=== PATIENT | female | born 1935 | race Caucasian/White ===

== ENCOUNTER 2016-05-15 23:12 | Inpatient (IN) ==
[2016-05-15] MEDS ORDERED: CLINDAMYCIN INJ 600 MG in PREMIX 1 EACH IV STA (23:45)
[2016-05-15] MEDS ORDERED: SODIUM CHLORIDE 0.9% 500 ML IV STA (23:45)
[2016-05-15] MEDS ORDERED: CLINDAMYCIN INJ 0 ML IV ONE (23:57)
--- NOTE | 2016-05-16 00:02 | Emergency Department Note ---
ILibby Emily, am scribing for, and in the presence of, Lucio Sharma MD 23: 51. Edith Snell Charles R, MD, personally performed the services described in this documentation, ascribed by Rose Souza in my presence, and it is both accurate and complete . Arrival - Arrival Chief Complaint: Extremity Problem Stated Complaint: pain in left leg ED Nursing Triage Note: pt states she has cellulitis in left leg and its hurting and burning and itching. pt was prescribed antibiotics that didnt help and md told pt she may need iv antibiotics Mode of Arrival: Wheelchair Limitations: No Limitations Source: Patient, Family Time Seen by Provider: 05/15/16 23:30 - History of Present Illness HPI Narrative: Pt is a 80 y/o female who came to ED with c/o chronic cellulitis in left leg that started before , May 09, 2016. However, pt was given abx of doxycycline on , but no relief. Pt notes her leg is swelling, itching and severely burning. Pt has called Dr. Powell due to chemo treatment tends to make her legs flare up with cellulitis. Pt denies hx of blood clots. Family states she has been hospitalized twice since 2015, for this sx. Pt reports taking Lasix earlier today and 2 ibuprofen with pain worsened. Pt is currently in Stage IV Breast CA and had right mastectomy. Onset (ago): hour(s) Consistency: constant Severity: moderate, severe Severity scale (1-10): 7 Quality: aching Date of Last Menstrual Period: hysty Allergies/Adverse Reactions: Allergies Allergy/AdvReac Type Severity Reaction Status Date / Time ampicillin Allergy RASH Verified 12/12/15 10:48 cephalexin [From Keflex] Allergy RASH Verified 12/12/15 10:48 Cephalosporins Allergy RASH Verified 12/12/15 10:48 Penicillins Allergy RASH Verified 12/12/15 10:49 Home Medications: Home Medications Medication Instructions Recorded Confirmed Type Anastrozole 1 mg PO DAILY@1700 12/12/15 01/08/16 History Mupirocin [Mupirocin 2% Oint] 1 applic TOP DAILY 01/08/16 01/08/16 History levoFLOXacin [Levofloxacin Tab] 250 mg PO TID 01/08/16 01/08/16 History Review of System - Review of System 12 point system: reviewed and no additional remarkable complaints except as stated - Review of System Constitutional: Absent: chills, fever Respiratory: Absent: respiratory distress Cardiovascular: Absent: chest pain Gastrointestinal: Absent: abdominal pain, nausea, vomiting Musculoskeletal: Present: leg pain (left leg swollen, itchy, burning). Absent: arm pain, back pain, neck pain Skin: Absent: rash Neurological: Absent: headache Psychiatric: Absent: anxiety Medical,Surgical,& Family Hx - Medical History Neurology: History of: Seizures Respiratory: No history of: Obstructive Sleep Apnea, Lung Cancer, Respiratory Problems Gastrointestinal: History of: GI Problems Musculoskeletal: History of: Back/Neck Problems Reproductive: History of: Breast Cancer (right masectomy) Other: History of: Cancer (stage 4 breast cancer) - Surgical History Thoracic Surgeries: Patient denies;: Lobectomy Reproductive Surgeries: Surgical HX of;: Hysterectomy - Family History Family History: Reports;: Family Heart Disease, Family Hypertension Denies;: Family Anesthesia Reaction, Family Cancer, Family Diabetes - Social History Smoking Status: Never smoker Frequency of Alcohol Use: None Type of Drug Use: None Marital Status: Single Exam Vital Signs: Vital Signs Temperature 98.7 F 05/15/16 23:16 Pulse Rate 97 H 05/15/16 23:16 Respiratory Rate 20 05/15/16 23:16 Blood Pressure 143/79 05/15/16 23:16 O2 Sat by Pulse Oximetry 96 05/15/16 23:16 - General General appearance: alert, in no apparent distress - Head Head exam: Present: atraumatic, normocephalic - Eye Eye exam: Present: PERRL, EOMI - ENT ENT exam: Present: mucous membranes moist. Absent: mucous membranes dry - Neck Neck exam: Present: full ROM. Absent: tenderness - Chest Chest inspection: Present: symmetric chest wall rise. Absent: tenderness - Respiratory Respiratory exam: Present: rales (mild). Absent: respiratory distress - Cardiovascular Cardiovascular exam: Present: regular rate, normal rhythm, normal heart sounds - Abdominal Exam Abdominal exam: Present: soft. Absent: distention, tenderness - Extremities Exam Extremities exam: Present: full ROM, tenderness (left leg from knee down is beaming red and severe warm to touch and swollen; negative rene's sign) - Neurological Exam Neurological exam: Present: alert, oriented X3, CN II-XII intact. Absent: motor sensory deficit - Psychiatric Psychiatric exam: Present: normal affect, normal mood - Skin Skin exam: Present: warm, dry Course - Reevaluation(s) Reevaluation #1: There is a delaying care because the patient does not want any of the nurses in this emergency room or in the hospital except specifically the fourth floor nurses to access her port. We explained to her that our nurses are capable and she says no currently right now there is several codes going on the hospital and the nurses are busy and they cannot come down to access her port as soon as the nurses available to come down to do it they will but this is a reason for delaying care this patient she understands this and she accepts this risk we cannot get blood drawn get medications until we accessed her port and she will not allow any nurse to touch and listed the nurses from the 4th floor Time: 01:27 Reevaluation #2: Patient was pleased when she found out that was going to the floor with a access her port and get her blood work and start antibiotics Time: 01:50 - Consultations Consultation #1: Spoke to Dr. Shepard he said go ahead admit her for observation IV antibiotics they can access her Mediport upstairs in the floor since we are delaying care and time down here in the emergency room since all the nurses are tied up and busy cannot come down here they can access it up there and get the labs have Dr. Powell here in the morning Time: 01:45 Disposition Clinical Impression: Cellulitis, Breast cancer Case discussed with: patient, patient's family Disposition: Still a Patient Condition: Stable Time of Disposition: 01:48
[2016-05-16] MEDS ORDERED: chlorproMAZINE INJ 25 MG in SODIUM CHLORIDE 0.9% 100 ML IV PRN (02:43)
[2016-05-16] MEDS ORDERED: LACTULOSE 20 GM/30 ML UDCUP PO PRN (02:43)
[2016-05-16] MEDS ORDERED: chlorproMAZINE 25 MG TABLET PO PRN (02:43)
[2016-05-16] MEDS ORDERED: MAGNESIUM HYDROXIDE SUSP 30 ML UDCUP PO PRN (02:43)
[2016-05-16] MEDS ORDERED: ALPRAZolam 0.25 MG TABLET PO PRN (02:43)
[2016-05-16] MEDS ORDERED: MYLANTA/LIDO VISC 2:1 300 ML BOTTLE SWISH/SWAL PRN (02:43)
[2016-05-16] MEDS ORDERED: BENZTROPINE 2 MG/2 ML AMP IV PRN (02:43)
[2016-05-16] MEDS ORDERED: LOPERAMIDE 2 MG CAPSULE PO PRN ×2 (02:43)
[2016-05-16] MEDS ORDERED: traMADol 50 MG TABLET PO PRN (02:43)
[2016-05-16] MEDS ORDERED: PROMETHAZINE INJ 25 MG in SODIUM CHLORIDE 0.9% 50 ML IV PRN (02:43)
[2016-05-16] MEDS ORDERED: TEMAZEPAM 7.5 MG CAPSULE PO PRN (02:43)
[2016-05-16] MEDS ORDERED: ACETAMINOPHEN 325 MG TABLET PO PRN (02:43)
[2016-05-16] MEDS ORDERED: chlorproMAZINE INJ 50 MG in SODIUM CHLORIDE 0.9% 100 ML IV PRN (02:43)
[2016-05-16] MEDS ORDERED: ONDANSETRON 4 MG/2 ML VIAL IV PRN (02:43)
[2016-05-16] MEDS ORDERED: guaiFENesin 200 MG/10 ML UDCUP PO PRN (02:43)
[2016-05-16] MEDS ORDERED: diphenhydrAMINE CAP 25 MG CAPSULE PO PRN (02:43)
[2016-05-16] MEDS ORDERED: ALUMINUM/MAGNES/SIMETH MAX STR 30 ML UDCUP PO PRN (02:43)
[2016-05-16] MEDS ORDERED: MYLANTA/LIDO VISC 2:1 300 ML BOTTLE SWISH/SPIT PRN (02:43)
[2016-05-16] MEDS: SODIUM CHLORIDE 0.9% 1,000 ML IV SCH (03:42)
[2016-05-16 05:57] LABS: Albumin 3.1 G/DL (3.4-5.0); Bilirubin,Total 0.5 MG/DL (0.2-1.0); Calcium 8.4 MG/DL (8.5-10.1); Magnesium 1.7 MG/DL (1.8-2.4); Osmolality,Calculated 288.8 MOS/KG (273-304); Potassium 3.7 MMOL/L (3.5-5.1); Total Protein 6.2 G/DL (6.4-8.3); Uric Acid 6.2 MG/DL (2.6-6.0)
[2016-05-16 06:05] LABS: Basophils % 0.4 % (0.0-0.8); Eosinophils # 0.4 10*3/uL (0.0-0.87); Eosinophils % 4.5 % (0.00-10.9); Hematocrit 33.4 VOL% (35.7-47.0); Hemoglobin 10.9 GM/DL (12.0-16.0); Immature Granulocytes % 0.4 %; Immature Granulocytes Absolute 0.04 #; Lymphocytes # 2.4 10*3/uL (1.4-4.0); Lymphocytes % 27.3 % (21.3-54.2); Mean Corpuscular HGB Conc 32.6 GM/DL (32-36); Mean Corpuscular Hemoglobin 31 PG (27-34); Mean Corpuscular Volume 94.4 FL (87-102); Monocytes # 0.9 10*3/uL (0.11-0.8); Neutrophils # 5.1 10*3/uL (1.4-7.4); Neutrophils % 57.4 % (38.7-73.9); Platelet Count 223 T/CUMM (130-400); Red Blood Count 3.54 MC/CUMM (3.8-5.5); Red Cell Distribution Width 13.2 % (9.3-17.3); White Blood Count 8.9 T/CUMM (4-12)
[2016-05-16 06:13] LABS: PT Patient Result 10.5 SECS
[2016-05-16] MEDS: CLINDAMYCIN INJ 600 MG in PREMIX 1 EACH IV SCH ×3 (06:28→18:37)
[2016-05-16] MEDS ORDERED: FUROSEMIDE 20 MG TABLET PO PRN (07:26)
--- NOTE | 2016-05-16 07:32 | Oncology Progress Note ---
Oncology Subjective PN Interval history: Patient admitted overnight with fever and lower extremity cellulitis left greater than right. 1 of several episodes. The patient stated she attempted to treat with home supply of doxycycline but to no avail. She is followed by me for metastatic breast cancer with bone metastasis in the setting of a remote history of breast cancer and bilateral mastectomy. She has received cytotoxic chemotherapy as well as immunotherapy in the past and is currently on aromatase inhibitor and Xgeva. 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
--- NOTE | 2016-05-16 07:35 | Oncology History&Physical ---
Assessment and Plan (1) Cellulitis Status: Acute Assessment and plan: The patient has been placed on IV clindamycin and I will add IV vancomycin. See chart for further orders Current Visit: Yes History of Present Illness Chief complaint: Fever and cellulitis History of present illness: Ms. Dequan Hampton is a 80 year old female Patient admitted overnight with fever and lower extremity cellulitis left greater than right. 1 of several episodes. The patient stated she attempted to treat with home supply of doxycycline but to no avail. She is followed by me for metastatic breast cancer with bone metastasis in the setting of a remote history of breast cancer and bilateral mastectomy. She has received cytotoxic chemotherapy as well as immunotherapy in the past and is currently on aromatase inhibitor and Xgeva. 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 and was treated as lung cancer originally until a repeat biopsy tested positive for estrogen receptor Home Medications Medication Instructions Recorded Confirmed Type Anastrozole 1 mg PO ONCE 12/12/15 05/16/16 History Mupirocin [Mupirocin 2% Oint] 1 applic TOP DAILY 01/08/16 05/16/16 History Doxycycline Hyclate Cap 100 mg PO BID 05/16/16 05/16/16 History [Vibramycin Cap] Furosemide 20 mg PO BID PRN 05/16/16 05/16/16 History Allergies Allergy/AdvReac Type Severity Reaction Status Date / Time ampicillin Allergy RASH Verified 12/12/15 10:48 cephalexin [From Keflex] Allergy RASH Verified 12/12/15 10:48 Cephalosporins Allergy RASH Verified 12/12/15 10:48 Penicillins Allergy RASH Verified 12/12/15 10:49 Medical,Surgical,& Family Hx - Medical History Neurology: History of: Seizures Respiratory: No history of: Obstructive Sleep Apnea, Lung Cancer, Respiratory Problems Gastrointestinal: No history of: GI Problems Musculoskeletal: History of: Back/Neck Problems (back aches) Hematology: History of: Anemia (has received blood once due to low counts) Reproductive: History of: Breast Cancer (right masectomy) Other: History of: Cancer (stage 4 breast cancer), Skin Problems (cellulitis) - Surgical History Thoracic Surgeries: Patient denies;: Lobectomy HEENT Surgeries: Surgical HX of: Tonsilectomy & Adenoidectomy Abdominal Surgeries: Surgical HX of: Appendectomy Reproductive Surgeries: Surgical HX of;: Breast Surgery, Hysterectomy - Family History Family History: Reports;: Family Heart Disease, Family Hypertension Denies;: Family Anesthesia Reaction, Family Cancer, Family Diabetes - Social History Smoking Status: Never smoker Frequency of Alcohol Use: None Type of Drug Use: None - Constitutional Constitutional: Present: fatigue, fever(s). Absent: chills, increased appetite , weight gain, weight loss - EENT Ears: Absent: tinnitus Nose, mouth and throat: Absent: vertigo - Cardiovascular Cardiovascular ROS IM: Absent: chest pain, palpitations - Respiratory Respiratory: Present: dyspnea. Absent: cough, hemoptysis, wheezing - Gastrointestinal Gastrointestinal: Absent: abdominal pain, change in bowel habits, heartburn Exam - Constitutional Vitals: Period Temp Pulse Resp BP Sys/Garcia Pulse Ox Last 24 Hr 98.5 F 76-89 20-20 100-133/63-78 95-95 General appearance: mild distress, over weight - Head Head Exam: Present: normal inspection, normocephalic, atraumatic - Eye Eye Exam: Present: EOMI. Absent: conjunctival injection, periorbital swelling, scleral icterus Pupils: Present: PERRL, normal accommodation - ENT ENT exam: Present: normal external ear exam - Neck Neck exam: Present: normal inspection. Absent: lymphadenopathy - Respiratory Respiratory exam: Present: CTAB. Absent: accessory muscle use - Cardiovascular Cardiovascular exam: Present: RRR - GI/Abdominal GI/Abdominal exam: Absent: distended, firm, guarding, mass, tenderness - Extremities Exam Extremities exam: Present: normal capillary refill - Neurological Exam Neurological exam: Present: alert, oriented X3 - Skin Skin exam: Present: warm (Bilateral lower extremity cellulitis left greater than right), erythema Results - Labs CBC & BMP: 05/16/16 05:30 05/16/16 03:00 Quality Measures - VTE Contraindication to Mechanical VTE Prophylaxis: Local Inflammation
--- NOTE | 2016-05-16 08:36 | XRay Report ---
XR chest 2V Date: 05/16/2016 4:00 AM History: Shortness of breath Comparison: 05/17/2015 Technique: PA and lateral chest Findings: The heart is minimally enlarged with uncoiling of the aorta. Stable venous right venous access catheter. The lungs remain hyperexpanded with chronic scarring. Stable mediastinum with degenerative changes. Residual areas of sclerosis and inhomogeneous bony trabecular pattern especially in the left humeral head. Prior right mastectomy. Impression: The lungs remain minimally hyperexpanded with chronic interstitial scarring. Prior right mastectomy with residual osseous findings consistent with metastatic disease. PROCEDURE INTERPRETED AT [facility] DEPARTMENT OF RADIOLOGY Final Report Signed by: Dr. Dalia Hirsch
[2016-05-16] MEDS: PANTOPRAZOLE 40 MG TABLET PO SCH (09:27)
[2016-05-16] MEDS: VANCOMYCIN INJ 1,250 MG in SODIUM CHLORIDE 0.9% 250 ML IV SCH ×2 (09:34→20:23)
[2016-05-16 19:46] LABS: Apearance,Urine CLEAR (Clear); Bilirubin,Urine Negative (Negative); Blood, Urine Negative (Negative); Glucose,Urine (UA) Negative (Negative); Ketones,Urine 5 mg/dL (Negative); Nitrite,Urine Negative (Negative); Protein,Urine Negative; Squamous Epithelial Cell,Urine Occasional /HPF (0-10); Urine Color Straw (Yellow); Urine Specific Gravity 1.008 (1.001-1.035); Urine Urobilinogen < 2.0 EU/DL (0.2-1.0); WBC,Urine 1 /HPF (0-6)
[2016-05-17] MEDS: CLINDAMYCIN INJ 600 MG in PREMIX 1 EACH IV SCH ×5 (00:25→23:54)
[2016-05-17] MEDS: SODIUM CHLORIDE 0.9% 1,000 ML IV SCH (02:45)
[2016-05-17] MEDS: VANCOMYCIN INJ 1,250 MG in SODIUM CHLORIDE 0.9% 250 ML IV SCH ×2 (09:29→20:32)
[2016-05-17] MEDS: PANTOPRAZOLE 40 MG TABLET PO SCH (09:31)
--- NOTE | 2016-05-17 10:30 | Oncology Progress Note ---
Assessment and Plan (1) Cellulitis Status: Acute Assessment and plan: The patient has been placed on IV clindamycin and I will add IV vancomycin. See chart for further orders Current Visit: Yes Oncology Subjective PN Interval history: Hospital day 3. Patient stable overnight. She is not requiring anything for leg pain. By demarcation the cellulitis has not progressed. A vancomycin trough is ordered for later this evening. Her current dose is 1250 mg every 12 hours along with IV clindamycin. We checked for drug interactions at the bedside with anastrozole and clindamycin and none were found. She has some other complaints of skin irritation and neck stiffness. Going to add ibuprofen as needed aches and pains. Her last admission required approximately 5-6 days of antibiotics before significant improvement was seen. Blood culture results are still pending as of this dictation . labs are ordered for the a.m. Exam - Constitutional Vitals: Period Temp Pulse Resp BP Sys/Garcia Pulse Ox Last 24 Hr 96.1 F-98.5 F 89-102 18-23 105-150/53-74 93-97 Results - Labs CBC & BMP: 05/16/16 05:30 05/16/16 03:00 Quality Measures - VTE Contraindication to Mechanical VTE Prophylaxis: Local Inflammation
[2016-05-17] MEDS ORDERED: IBUPROFEN 400 MG TABLET PO PRN (10:31)
[2016-05-17] MEDS: MUPIROCIN 2% OINT 22 GM TUBE TOP SCH (20:32)
[2016-05-18] MEDS: CLINDAMYCIN INJ 600 MG in PREMIX 1 EACH IV SCH ×4 (06:11→23:56)
[2016-05-18 06:43] LABS: Albumin 2.8 G/DL (3.4-5.0); Calcium 8.2 MG/DL (8.5-10.1); Osmolality,Calculated 294.4 MOS/KG (273-304); Potassium 4.1 MMOL/L (3.5-5.1); Total Protein 5.6 G/DL (6.4-8.3)
[2016-05-18 07:16] LABS: Basophils # 0.1 10*3/uL (0.0-0.2); Basophils % 0.7 % (0.0-0.8); Eosinophils # 0.5 10*3/uL (0.0-0.87); Eosinophils % 6.6 % (0.00-10.9); Hematocrit 30.4 VOL% (35.7-47.0); Hemoglobin 10.7 GM/DL (12.0-16.0); Immature Granulocytes % 0.6 %; Immature Granulocytes Absolute 0.04 #; Lymphocytes # 1.6 10*3/uL (1.4-4.0); Lymphocytes % 22.6 % (21.3-54.2); Mean Corpuscular HGB Conc 35.2 GM/DL (32-36); Mean Corpuscular Hemoglobin 33 PG (27-34); Mean Platelet Volume 10.9 FL (9.6-12.0); Monocytes # 0.9 10*3/uL (0.11-0.8); Monocytes % 12.2 % (1.7-12.7); Neutrophils % 57.3 % (38.7-73.9); Platelet Count 213 T/CUMM (130-400); Red Cell Distribution Width 13.4 % (9.3-17.3)
[2016-05-18] MEDS: PANTOPRAZOLE 40 MG TABLET PO SCH (08:32)
[2016-05-18] MEDS: VANCOMYCIN INJ 1,250 MG in SODIUM CHLORIDE 0.9% 250 ML IV SCH ×2 (08:37→20:50)
--- NOTE | 2016-05-18 08:55 | Oncology Progress Note ---
Assessment and Plan (1) Cellulitis Status: Acute Assessment and plan: 80 year old female with PMHx of metastatic breast cancer on arimidex and recurrent LE cellulitis admitted for a recurrence of LLE cellulitis. - clinically improving - continue with clinda and vanco - continue with bactroban topically Current Visit: Yes (2) Breast cancer Status: Acute Assessment and plan: continue with arimidex Current Visit: Yes (3) Rash of body Status: Acute Assessment and plan: nystatin to under left breast Current Visit: No Oncology Subjective PN Interval history: 80 year old female with PMHx of metastatic breast cancer on arimidex and recurrent LE cellulitis admitted for a recurrence of LLE cellulitis. Per patient the erythema has extended slightly more proximal but the overall tenderness and erythema has decreased. States fevers and chills have resolved. Denies pain other than in leg. Good PO intake. No N, V. Tolerating antibiotics well. Exam - Constitutional Vitals: Period Temp Pulse Resp BP Sys/Garcia Pulse Ox Last 24 Hr 97.7 F-98.9 F 87-109 16-22 115-139/55-66 92-98 General appearance: no acute distress - Eye Eye Exam: Present: EOMI Pupils: Present: PERRL - Neck Neck exam: Absent: lymphadenopathy - Respiratory Respiratory exam: Present: CTAB - Cardiovascular Cardiovascular exam: Present: RRR - GI/Abdominal GI/Abdominal exam: Present: soft. Absent: distended, guarding, mass, tenderness - Extremities Exam Extremities exam: Present: edema (2+ LE with significant erythema of LLE from foot to the knee with warmth and tenderness to touch) - Neurological Exam Neurological exam: Present: alert, oriented X3 - Skin Skin exam: Present: warm, erythema, rash (rash under left breast) Results - Labs CBC & BMP: 05/18/16 04:40 05/18/16 04:40 Quality Measures - VTE Contraindication to Mechanical VTE Prophylaxis: Local Inflammation
[2016-05-18] MEDS: MUPIROCIN 2% OINT 22 GM TUBE TOP SCH ×3 (10:44→20:52)
[2016-05-18] MEDS: ANASTROZOLE 1 MG TABLET PO SCH (13:00)
[2016-05-18] MEDS: NYSTATIN CREAM 15 GM TUBE TOP SCH ×2 (17:18→20:52)
[2016-05-18] MEDS: SODIUM CHLORIDE 0.9% 1,000 ML IV SCH ×2 (19:10→23:58)
[2016-05-19] MEDS: SODIUM CHLORIDE 0.9% 1,000 ML IV SCH (04:39)
[2016-05-19 05:13] LABS: Basophils % 0.5 % (0.0-0.8); Eosinophils # 0.4 10*3/uL (0.0-0.87); Eosinophils % 4.8 % (0.00-10.9); Hematocrit 31.6 VOL% (35.7-47.0); Immature Granulocytes % 0.7 %; Immature Granulocytes Absolute 0.06 #; Lymphocytes # 1.6 10*3/uL (1.4-4.0); Lymphocytes % 18.3 % (21.3-54.2); Mean Corpuscular HGB Conc 31.6 GM/DL (32-36); Mean Corpuscular Hemoglobin 30 PG (27-34); Mean Corpuscular Volume 95.8 FL (87-102); Mean Platelet Volume 10.4 FL (9.6-12.0); Monocytes # 1.1 10*3/uL (0.11-0.8); Monocytes % 12.4 % (1.7-12.7); Neutrophils # 5.5 10*3/uL (1.4-7.4); Neutrophils % 63.3 % (38.7-73.9); Platelet Count 201 T/CUMM (130-400); Red Cell Distribution Width 13.4 % (9.3-17.3); White Blood Count 8.7 T/CUMM (4-12)
[2016-05-19 05:48] LABS: Albumin 2.8 G/DL (3.4-5.0); Bilirubin,Total 0.7 MG/DL (0.2-1.0); Calcium 8.7 MG/DL (8.5-10.1); Osmolality,Calculated 292.6 MOS/KG (273-304); Potassium 4.2 MMOL/L (3.5-5.1); Total Protein 5.8 G/DL (6.4-8.3)
[2016-05-19] MEDS: CLINDAMYCIN INJ 600 MG in PREMIX 1 EACH IV SCH ×3 (06:28→17:23)
[2016-05-19] MEDS: VANCOMYCIN INJ 1,250 MG in SODIUM CHLORIDE 0.9% 250 ML IV SCH ×2 (09:09→21:01)
[2016-05-19] MEDS: PANTOPRAZOLE 40 MG TABLET PO SCH (09:14)
[2016-05-19] MEDS: NYSTATIN CREAM 15 GM TUBE TOP SCH ×2 (09:14→21:37)
[2016-05-19] MEDS ORDERED: GABAPENTIN 100 MG CAPSULE PO PRN (12:26)
--- NOTE | 2016-05-19 12:29 | Oncology Progress Note ---
Assessment and Plan (1) Cellulitis Status: Acute Assessment and plan: 80 year old female with PMHx of metastatic breast cancer on arimidex and recurrent LE cellulitis admitted for a recurrence of LLE cellulitis. - patient concerned about extension of erythema though pen markings removed - re-rajwinder marking lines to follow extension - clinically patient stable with no fevers, no tachycardia, no leukocytosis - will continue with current antibiotics of clinda and vanco - if patient with extension of erythema then will consider adding gram negative coverage in the future - continue with bactroban topically - PRN neurotin added for pain management Current Visit: Yes (2) Breast cancer Status: Acute Assessment and plan: continue with arimidex Current Visit: Yes (3) Rash of body Status: Acute Assessment and plan: nystatin to under left breast Current Visit: No Oncology Subjective PN Interval history: Today patient states feels that overall redness and warmth improved but concerned about possible extension of erythema and 1 new satellite nodule more proximal on the leg which she states is how the erythema begins. Unfortunately her initial markings on the skin have been washed off so hard to determine if erythema has extended. Other than these concerns patient is doing well. No fevers. No chills. No SOB, abdominal pain. Continues to have good PO intake and fluid intake. Exam - Constitutional Vitals: Period Temp Pulse Resp BP Sys/Garcia Pulse Ox Last 24 Hr 97.8 F-99.9 F 88-103 18-22 115-133/51-70 95-98 General appearance: no acute distress - Eye Eye Exam: Present: EOMI Pupils: Present: PERRL - Respiratory Respiratory exam: Present: CTAB - Cardiovascular Cardiovascular exam: Present: RRR - GI/Abdominal GI/Abdominal exam: Present: soft. Absent: ascites, distended, mass, tenderness - Extremities Exam Extremities exam: Present: edema - Neurological Exam Neurological exam: Present: alert, oriented X3 - Skin Skin exam: Present: warm, erythema, rash, other (LLE extremity cellulitis extending from ankle to knee with 1 1cm nodule on proximal thigh) Results - Labs CBC & BMP: 05/19/16 04:00 05/19/16 04:00 Quality Measures - VTE Contraindication to Mechanical VTE Prophylaxis: Local Inflammation
[2016-05-19] MEDS: ANASTROZOLE 1 MG TABLET PO SCH (12:39)
[2016-05-19] MEDS: MUPIROCIN 2% OINT 22 GM TUBE TOP SCH ×2 (17:27→21:37)
[2016-05-20] MEDS: CLINDAMYCIN INJ 600 MG in PREMIX 1 EACH IV SCH ×4 (00:11→21:40)
[2016-05-20 05:37] LABS: Albumin 2.7 G/DL (3.4-5.0); Bilirubin,Total 0.7 MG/DL (0.2-1.0); Calcium 8.5 MG/DL (8.5-10.1); Osmolality,Calculated 290.7 MOS/KG (273-304); Total Protein 5.6 G/DL (6.4-8.3)
[2016-05-20] MEDS: SODIUM CHLORIDE 0.9% 1,000 ML IV SCH (09:04)
[2016-05-20] MEDS: PANTOPRAZOLE 40 MG TABLET PO SCH (09:10)
[2016-05-20] MEDS: ANASTROZOLE 1 MG TABLET PO SCH (09:10)
[2016-05-20] MEDS: VANCOMYCIN INJ 1,250 MG in SODIUM CHLORIDE 0.9% 250 ML IV SCH ×2 (09:15→20:16)
[2016-05-20] MEDS: MUPIROCIN 2% OINT 22 GM TUBE TOP SCH (09:15)
[2016-05-20] MEDS: NYSTATIN CREAM 15 GM TUBE TOP SCH (09:15)
--- NOTE | 2016-05-20 09:19 | Oncology Progress Note ---
Assessment and Plan (1) Cellulitis Status: Acute Assessment and plan: The patient has been placed on IV clindamycin and I will add IV vancomycin. See chart for further orders Current Visit: Yes Oncology Subjective PN Interval history: Patient with metastatic breast cancer elderly and debilitated. The patient also with obesity and increased fluid retention. She has been on 30 cc of normal saline which will be discontinued today. Her renal function is adequate. Remains on vancomycin and clindamycin. She states she has a very important engagement at 2 PM today regarding a legal issue. If her employment attorney is not able to come to the hospital then I have okayed a 1-2 Hour Pass. We will also initiate diuresis with Lasix 40 IV twice daily for several days. However, she will not take this until after her engagement. Patient with persistent cellulitis of the lower extremities. Given the degree of edema I will also check lower extremity ultrasound. I discussed swing bed with her though she adamantly uses this and has been in [facility] previously. It appears she will need to remain inpatient for several more days. Exam - Constitutional Vitals: Period Temp Pulse Resp BP Sys/Garcia Pulse Ox Last 24 Hr 96.4 F-98.7 F 87-98 19-20 118-149/51-85 97-98 Results - Labs CBC & BMP: 05/19/16 04:00 05/20/16 04:00 Quality Measures - VTE Contraindication to Mechanical VTE Prophylaxis: Local Inflammation
--- NOTE | 2016-05-20 10:28 | Ultrasound Report ---
History: Lower extremity edema Date: 05/20/2016 Study: Bilateral lower extremity color-flow venous Doppler study Comparison exam: No previous Color Doppler, wave form analysis, and compression analysis of the deep veins of both lower extremities from the common femoral vein level through the popliteal vein level shows that the veins are readily compressible. There is no abnormal intraluminal material to suggest thrombus. Waveform analysis is unremarkable. Ultrasound images were captured and archived Impression: Normal bilateral lower extremity color flow venous Doppler study. No evidence of deep venous thrombosis PROCEDURE INTERPRETED AT [facility] DEPARTMENT OF RADIOLOGY Final Report Signed by: Dr. Sandrita hWite
[2016-05-20] MEDS: FUROSEMIDE 40 MG/4 ML VIAL IV SCH (16:11)
[2016-05-20] MEDS ORDERED: HEPARIN LOCK FLUSH 500 UNIT/5 ML SYRINGE IV ONE (18:27)
[2016-05-21] MEDS: MUPIROCIN 2% OINT 22 GM TUBE TOP SCH ×3 (00:11→23:17)
[2016-05-21] MEDS: NYSTATIN CREAM 15 GM TUBE TOP SCH ×3 (00:11→21:27)
[2016-05-21] MEDS: CLINDAMYCIN INJ 600 MG in PREMIX 1 EACH IV SCH ×4 (04:26→21:27)
[2016-05-21] MEDS: VANCOMYCIN INJ 1,250 MG in SODIUM CHLORIDE 0.9% 250 ML IV SCH ×2 (09:05→20:32)
[2016-05-21] MEDS: FUROSEMIDE 40 MG/4 ML VIAL IV SCH ×2 (09:55→15:19)
[2016-05-21] MEDS: PANTOPRAZOLE 40 MG TABLET PO SCH (09:55)
[2016-05-21 10:23] LABS: Albumin 2.9 G/DL (3.4-5.0); Bilirubin,Total 0.4 MG/DL (0.2-1.0); Calcium 8.4 MG/DL (8.5-10.1); Osmolality,Calculated 298.4 MOS/KG (273-304); Potassium 3.8 MMOL/L (3.5-5.1); Total Protein 6.1 G/DL (6.4-8.3)
--- NOTE | 2016-05-21 17:29 | Oncology Progress Note ---
Assessment and Plan (1) Cellulitis Status: Acute Assessment and plan: The patient has been placed on IV clindamycin and I will add IV vancomycin. See chart for further orders Current Visit: Yes Oncology Subjective PN Interval history: The patient is afebrile. She still has what I feel to be active infection of the left lower extremity. She is on intravenous clindamycin. She has actually refused several doses of vancomycin due to a fear of nephrotoxicity. I have reviewed her creatinine levels which are normal as well as appropriate vancomycin trough monitoring. A random level was drawn today and attempt to reassure the patient that she has continued to decline this therapy. We are using furosemide due to lower extremity edema and associated pain. Studies were negative for deep vein thrombosis. I will readdress the intravenous medication issue in the morning and if she continues to refuse we may transition somewhat early to oral therapy. Exam - Constitutional Vitals: Period Temp Pulse Resp BP Sys/Garcia Pulse Ox Last 24 Hr 98.1 F-99.4 F 89-104 18-21 103-153/57-79 92-98 Results - Labs CBC & BMP: 05/19/16 04:00 05/21/16 09:40 Quality Measures - VTE Contraindication to Mechanical VTE Prophylaxis: Local Inflammation
[2016-05-21] MEDS: FONDAPARINUX 2.5 MG/0.5 ML SYRINGE SUBCUT SCH (21:26)
[2016-05-22] MEDS: CLINDAMYCIN INJ 600 MG in PREMIX 1 EACH IV SCH ×4 (04:19→22:04)
[2016-05-22] MEDS ORDERED: HEPARIN LOCK FLUSH 500 UNIT/5 ML SYRINGE IV ONE (04:35)
[2016-05-22 05:12] LABS: Basophils # 0.1 10*3/uL (0.0-0.2); Basophils % 0.5 % (0.0-0.8); Eosinophils # 0.4 10*3/uL (0.0-0.87); Eosinophils % 3.9 % (0.00-10.9); Hematocrit 33.9 VOL% (35.7-47.0); Immature Granulocytes % 0.6 %; Immature Granulocytes Absolute 0.06 #; Lymphocytes # 1.5 10*3/uL (1.4-4.0); Mean Corpuscular HGB Conc 32.4 GM/DL (32-36); Mean Corpuscular Hemoglobin 31 PG (27-34); Mean Corpuscular Volume 95.5 FL (87-102); Mean Platelet Volume 10.6 FL (9.6-12.0); Monocytes % 10.5 % (1.7-12.7); Neutrophils # 6.5 10*3/uL (1.4-7.4); Neutrophils % 68.5 % (38.7-73.9); Platelet Count 225 T/CUMM (130-400); Red Blood Count 3.55 MC/CUMM (3.8-5.5); Red Cell Distribution Width 13.2 % (9.3-17.3); White Blood Count 9.5 T/CUMM (4-12)
[2016-05-22 05:44] LABS: Albumin 3.1 G/DL (3.4-5.0); Calcium 8.9 MG/DL (8.5-10.1); Osmolality,Calculated 290.8 MOS/KG (273-304); Potassium 3.9 MMOL/L (3.5-5.1); Total Protein 6.7 G/DL (6.4-8.3)
[2016-05-22] MEDS: FUROSEMIDE 40 MG/4 ML VIAL IV SCH ×2 (08:02→17:26)
[2016-05-22] MEDS: VANCOMYCIN INJ 1,250 MG in SODIUM CHLORIDE 0.9% 250 ML IV SCH (08:06)
--- NOTE | 2016-05-22 09:20 | Oncology Progress Note ---
Assessment and Plan (1) Cellulitis Status: Acute Assessment and plan: The patient has been placed on IV clindamycin and I will add IV vancomycin. See chart for further orders Current Visit: Yes Oncology Subjective PN Interval history: Patient cellulitis is improved today. She has continued to refuse vancomycin and this will be discontinued. She states she took doxycycline for a week at home approximately prior to presentation. I will place her on Bactrim and consider for discharge in 24-48 hours. This can be given with and without additional oral clindamycin. Exam - Constitutional Vitals: Period Temp Pulse Resp BP Sys/Garcia Pulse Ox Last 24 Hr 97.6 F-99.4 F 89-106 18-20 103-145/59-75 93-98 Results - Labs CBC & BMP: 05/22/16 04:23 05/22/16 04:23 Quality Measures - VTE Contraindication to Mechanical VTE Prophylaxis: Local Inflammation
[2016-05-22] MEDS: PANTOPRAZOLE 40 MG TABLET PO SCH (10:25)
[2016-05-22] MEDS: SULFAMETHOX/TRIMETHOPRIM 800-160 MG TABLET PO SCH ×2 (12:53→21:57)
[2016-05-22] MEDS: NYSTATIN CREAM 15 GM TUBE TOP SCH ×2 (12:56→21:59)
[2016-05-22] MEDS: MUPIROCIN 2% OINT 22 GM TUBE TOP SCH ×2 (12:56→21:59)
[2016-05-22] MEDS: FONDAPARINUX 2.5 MG/0.5 ML SYRINGE SUBCUT SCH (21:57)
[2016-05-23] MEDS: CLINDAMYCIN INJ 600 MG in PREMIX 1 EACH IV SCH ×4 (04:28→22:59)
[2016-05-23] MEDS: SULFAMETHOX/TRIMETHOPRIM 800-160 MG TABLET PO SCH ×2 (08:28→21:48)
[2016-05-23] MEDS: PANTOPRAZOLE 40 MG TABLET PO SCH (08:29)
[2016-05-23] MEDS: FUROSEMIDE 40 MG/4 ML VIAL IV SCH ×2 (08:35→16:27)
[2016-05-23] MEDS ORDERED: HEPARIN LOCK FLUSH 500 UNIT/5 ML SYRINGE IV ONE (11:06)
[2016-05-23] MEDS: ANASTROZOLE 1 MG TABLET PO SCH (13:28)
--- NOTE | 2016-05-23 15:46 | Oncology Progress Note ---
Assessment and Plan (1) Cellulitis Status: Acute Assessment and plan: The patient has been placed on IV clindamycin and I will add IV vancomycin. See chart for further orders Current Visit: Yes Oncology Subjective PN Interval history: Patient with approximately 1 week hospitalization for metastatic breast cancer and left lower extremity cellulitis. The patient has improved overall. We are planning for discharge tomorrow. Her current antibiotics include Bactrim by mouth and clindamycin IV. We will reschedule this week's clinic appointment to next week. Exam - Constitutional Vitals: Period Temp Pulse Resp BP Sys/Garcia Pulse Ox Last 24 Hr 96.9 F-100.4 F 87-104 18-22 103-120/53-59 90-95 Results - Labs CBC & BMP: 05/22/16 04:23 05/22/16 04:23 Quality Measures - VTE Contraindication to Mechanical VTE Prophylaxis: Local Inflammation Specialty Discharge - Follow Up or Referrals
[2016-05-23] MEDS: MUPIROCIN 2% OINT 22 GM TUBE TOP SCH ×2 (17:08→22:10)
[2016-05-23] MEDS: NYSTATIN CREAM 15 GM TUBE TOP SCH ×2 (17:09→22:10)
[2016-05-23] MEDS: FONDAPARINUX 2.5 MG/0.5 ML SYRINGE SUBCUT SCH (21:48)
[2016-05-24] MEDS: CLINDAMYCIN INJ 600 MG in PREMIX 1 EACH IV SCH ×2 (04:47→10:18)
[2016-05-24] MEDS: FUROSEMIDE 40 MG/4 ML VIAL IV SCH (10:13)
[2016-05-24] MEDS: NYSTATIN CREAM 15 GM TUBE TOP SCH (10:18)
[2016-05-24] MEDS: SULFAMETHOX/TRIMETHOPRIM 800-160 MG TABLET PO SCH (10:18)
[2016-05-24] MEDS: MUPIROCIN 2% OINT 22 GM TUBE TOP SCH (10:18)
[2016-05-24] MEDS: PANTOPRAZOLE 40 MG TABLET PO SCH (10:19)
--- NOTE | 2016-05-24 10:54 | Discharge Summary ---
Diagnosis - Discharge Diagnosis (1) Cellulitis Status: Acute Specialty Discharge - Follow Up or Referrals Discharge Plan - Discharge Medications No Action Anastrozole 1 mg PO ONCE Mupirocin [Mupirocin 2% Oint] 1 applic TOP DAILY Doxycycline Hyclate Cap [Vibramycin Cap] 100 mg PO BID Furosemide 20 mg PO BID PRN PRN Reason: Edema - Follow Up or Referral - Forms/Instructions Instructions: Twan Antibiotic Awarness Exam - Constitutional Vitals: Period Temp Pulse Resp BP Sys/Garcia Pulse Ox Last 24 Hr 96.3 F-99.9 F 94-102 18-21 102-120/47-61 93-96 DS: Provider Date of admission: 05/16/16 08:45 Primary care physician: Karolina Youssef MD Attending physician on admission: Juan Powell MD Consults: 05/20/16 09:19 Consult to Occupational Therapy [CONS] Routine Reason for Occupational Therapy: Evaluate and Treat 05/24/16 10:42 Consult to Case Mgmt/Social Srvs [CONS] Routine Reason for Case Mgmt/Social Srvs: Home Health Consult Comment: Needs RN, physical and occupational therapy,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
[2016-05-24] MEDS ORDERED: HEPARIN LOCK FLUSH 500 UNIT/5 ML SYRINGE IV ONE (11:06)
[2016-05-24 13:04] VITALS: BP 127/70
--- NOTE | 2016-05-24 17:02 | Discharge Summary ---
DATE OF ADMISSION: 05/15/2016 DATE OF DISCHARGE: 05/24/2016 CONSULTATIONS: There were no consults during the hospitalization. DISCHARGE DIAGNOSES: 1. LEFT LOWER EXTREMITY CELLULITIS. 2. METASTATIC BREAST CANCER, ESTROGEN POSITIVE. 3. CHEMOTHERAPY RELATED ANEMIA. HOSPITAL COURSE: This patient was admitted with subjective fever and increasing left leg pain and e jesus. The patient has a history of multiple episodes of lower extremity cellulitis previously in e setting of chronic venous stasis. The patient was taking doxycycline at home for approximately 5 days prior to arrival for that foot pain. The patient's lab parameters have remained acceptable dur ing her hospital stay. She was on vancomycin and clindamycin. Due to fear of nephrotoxicity, the p atient refused her vancomycin. Clindamycin was continued and now we have added oral trimethoprim carter lfamethoxazole 1 tablet p.o. b.i.d. The patient is minimally ambulatory due to her age and obese tamar dy habitus. I plan on seeing her in the office on 05/29/2016. We will ask for home health to be in p [place] at the time of discharge. MEDICATIONS: Prescriptions are provided for Bactrim. Resume other home medications.
== END 2016-05-24 13:44 | disposition home health service (06) | DRG 603 ==
LOC: N.ED 23:12 → N.EDINP 23:12 → N.4E 05-16 02:28
PROVIDERS: ADMIT Specialist; ATTEND Specialist

== ENCOUNTER 2016-06-26 17:20 | Inpatient (IN) ==
--- NOTE | 2016-06-26 19:06 | XRay Report ---
Portable chest Date: 06/26/2016 Clinical history: Breast cancer, fever Comparison: 05/16/2016 Technique: Portable AP sitting chest Findings: The heart is minimally enlarged with uncoiling of the aorta. Stable right venous access catheter. Chronic scarring in the lungs with minimally progressive parenchymal findings especially in the lower lung zones. Stable sclerotic findings especially the left shoulder. Prior right mastectomy. Impression: Chronic scarring in the lungs with minimally progressive reticulonodular parenchymal findings which may be related to pneumonia. Follow-up chest x-ray is recommended in patient with prior right mastectomy. Stable osseous metastatic disease. PROCEDURE INTERPRETED AT [facility] DEPARTMENT OF RADIOLOGY Final Report Signed by: Dr. Dalia Hirsch
[2016-06-26] MEDS ORDERED: MYLANTA/LIDO VISC 2:1 300 ML BOTTLE SWISH/SPIT PRN (19:27)
[2016-06-26] MEDS ORDERED: ALPRAZolam 0.25 MG TABLET PO PRN (19:27)
[2016-06-26] MEDS ORDERED: chlorproMAZINE 25 MG TABLET PO PRN (19:27)
[2016-06-26] MEDS ORDERED: LOPERAMIDE 2 MG CAPSULE PO PRN ×2 (19:27)
[2016-06-26] MEDS ORDERED: chlorproMAZINE INJ 50 MG in SODIUM CHLORIDE 0.9% 100 ML IV PRN (19:27)
[2016-06-26] MEDS ORDERED: guaiFENesin 200 MG/10 ML UDCUP PO PRN (19:27)
[2016-06-26] MEDS ORDERED: BENZTROPINE 2 MG/2 ML AMP IV PRN (19:27)
[2016-06-26] MEDS ORDERED: ACETAMINOPHEN 325 MG TABLET PO PRN (19:27)
[2016-06-26] MEDS ORDERED: MAGNESIUM HYDROXIDE SUSP 30 ML UDCUP PO PRN (19:27)
[2016-06-26] MEDS ORDERED: diphenhydrAMINE CAP 25 MG CAPSULE PO PRN (19:27)
[2016-06-26] MEDS ORDERED: LACTULOSE 20 GM/30 ML UDCUP PO PRN (19:27)
[2016-06-26] MEDS ORDERED: ONDANSETRON 4 MG/2 ML VIAL IV PRN (19:27)
[2016-06-26] MEDS ORDERED: ALUMINUM/MAGNES/SIMETH MAX STR 30 ML UDCUP PO PRN (19:27)
[2016-06-26] MEDS ORDERED: chlorproMAZINE INJ 25 MG in SODIUM CHLORIDE 0.9% 100 ML IV PRN (19:27)
[2016-06-26] MEDS ORDERED: PROMETHAZINE INJ 25 MG in SODIUM CHLORIDE 0.9% 50 ML IV PRN (19:27)
[2016-06-26] MEDS ORDERED: traMADol 50 MG TABLET PO PRN (19:27)
[2016-06-26] MEDS ORDERED: TEMAZEPAM 7.5 MG CAPSULE PO PRN (19:27)
[2016-06-26] MEDS ORDERED: MYLANTA/LIDO VISC 2:1 300 ML BOTTLE SWISH/SWAL PRN (19:27)
[2016-06-26] MEDS ORDERED: LEVOFLOXACIN INJ 750 MG in PREMIX 1 EACH IV SCH (19:30)
[2016-06-26] MEDS ORDERED: SODIUM CHLORIDE 0.45% 1,000 ML IV SCH (19:30)
[2016-06-26] MEDS: LEVOFLOXACIN INJ 750 MG in PREMIX 1 EACH IV SCH (20:08)
[2016-06-26] MEDS: FLUCONAZOLE 200 MG TABLET PO SCH (20:08)
[2016-06-26] MEDS: SODIUM CHLORIDE 0.45% 1,000 ML IV SCH (20:09)
[2016-06-26] MEDS: ENOXAPARIN 40 MG/0.4 ML SYRINGE SUBCUT SCH (22:57)
[2016-06-27 02:22] LABS: Apearance,Urine CLEAR (Clear); Bacteria,Urine Occasional /HPF (Few); Bilirubin,Urine Negative (Negative); Blood, Urine Negative (Negative); Glucose,Urine (UA) Negative (Negative); Hyaline Casts,Urine 3 /LPF (0-3); Ketones,Urine Negative (Negative); Mucus,Urine Few /LPF (Occasional); Nitrite,Urine Negative (Negative); Protein,Urine Negative; RBC,Urine 2 /HPF (0-4); Squamous Epithelial Cell,Urine Occasional /HPF (0-10); Urine Color Yellow (Yellow); Urine Specific Gravity 1.014 (1.001-1.035); Urine Urobilinogen < 2.0 EU/DL (0.2-1.0); WBC,Urine 12 /HPF (0-6)
--- NOTE | 2016-06-27 09:19 | Oncology History&Physical ---
Assessment and Plan (1) Breast cancer Status: Acute Assessment and plan: We will continue the patient's aromatase inhibitor for breast cancer with bone metastasis. Continue levofloxacin and await blood cultures. [place] acyclovir and gabapentin for herpes zoster with analgesia as needed Current Visit: No History of Present Illness Chief complaint: Chills and fever History of present illness: Ms. Dequan Hampton is a 80 year old female Admitted directly from my office yesterday with low-grade temperature and severe shaking chill. She reported a rash underneath her left chest wall area today this is manifesting as herpes zoster. Her blood cultures are positive for gram-negative rods and she does have a possible urinary tract infection. She was placed on levofloxacin IV as she reports a history of rash type allergy to multiple antibiotics. Her temperature was as high as 101 overnight. Her oxygenation status is adequate at this time on room air and her chest x-ray shows primarily chronic scarring without a definite acute process in my opinion Home Medications Medication Instructions Recorded Confirmed Type Anastrozole 1 mg PO DAILY 12/12/15 06/26/16 History Allergies Allergy/AdvReac Type Severity Reaction Status Date / Time ampicillin Allergy RASH Verified 12/12/15 10:48 cephalexin [From Keflex] Allergy RASH Verified 12/12/15 10:48 Cephalosporins Allergy RASH Verified 12/12/15 10:48 Penicillins Allergy RASH Verified 12/12/15 10:49 Medical,Surgical,& Family Hx - Medical History Neurology: History of: Seizures Respiratory: No history of: Obstructive Sleep Apnea, Lung Cancer, Respiratory Problems Gastrointestinal: No history of: GI Problems Musculoskeletal: History of: Back/Neck Problems (back aches) Hematology: History of: Anemia (has received blood once due to low counts) Reproductive: History of: Breast Cancer (right masectomy) Other: History of: Cancer (stage 4 breast cancer), Skin Problems (cellulitis) - Surgical History Thoracic Surgeries: Patient denies;: Lobectomy HEENT Surgeries: Surgical HX of: Tonsilectomy & Adenoidectomy Abdominal Surgeries: Surgical HX of: Appendectomy Reproductive Surgeries: Surgical HX of;: Breast Surgery, Hysterectomy - Family History Family History: Reports;: Family Heart Disease, Family Hypertension Denies;: Family Anesthesia Reaction, Family Cancer, Family Diabetes - Social History Smoking Status: Never smoker Frequency of Alcohol Use: None Type of Drug Use: None - Constitutional Constitutional: Present: fever(s), weakness. Absent: night sweats - EENT Nose, mouth and throat: Absent: dysphagia, epistaxis - Cardiovascular Cardiovascular ROS IM: Absent: chest pain - Respiratory Respiratory: Absent: cough - Gastrointestinal Gastrointestinal: Absent: cramping - Genitourinary Genitourinary ROS female: Present: flank pain. Absent: hematuria - Neurological Neurological ROS: Absent: focal weakness, headache(s), memory loss Exam - Constitutional Vitals: Period Temp Pulse Resp BP Sys/Garcia Pulse Ox Last 24 Hr 96.3 F-101.6 F 81-127 18-20 98-106/49-56 92-93 General appearance: over weight - Head Head Exam: Present: normal inspection, normocephalic - Eye Eye Exam: Present: EOMI, conjunctival injection. Absent: periorbital swelling, scleral icterus Pupils: Present: PERRL - ENT ENT exam: Present: normal exam, normal external ear exam - Neck Neck exam: Present: normal inspection. Absent: lymphadenopathy - Respiratory Respiratory exam: Present: CTAB. Absent: accessory muscle use - Cardiovascular Cardiovascular exam: Present: tachycardia. Absent: systolic murmur - GI/Abdominal GI/Abdominal exam: Absent: distended, firm, guarding - Neurological Exam Neurological exam: Present: alert, oriented X3 - Skin Skin exam: Present: rash (Vesicular lesions left T5 dermatome)
[2016-06-27] MEDS: FLUCONAZOLE 200 MG TABLET PO SCH (10:05)
[2016-06-27] MEDS: ANASTROZOLE 1 MG TABLET PO SCH (10:05)
[2016-06-27] MEDS: ACYCLOVIR 200 MG CAPSULE PO SCH ×4 (10:05→21:30)
[2016-06-27] MEDS: GABAPENTIN 300 MG CAPSULE PO SCH ×2 (14:48→21:30)
[2016-06-27] MEDS: SODIUM CHLORIDE 0.45% 1,000 ML IV SCH (17:36)
[2016-06-27] MEDS: LEVOFLOXACIN INJ 750 MG in PREMIX 1 EACH IV SCH (20:03)
[2016-06-27] MEDS: ENOXAPARIN 40 MG/0.4 ML SYRINGE SUBCUT SCH (21:30)
[2016-06-28] MEDS: ACYCLOVIR 200 MG CAPSULE PO SCH ×5 (05:30→23:44)
[2016-06-28 08:39] LABS: Basophils # 0.1 10*3/uL (0.0-0.2); Basophils % 0.6 % (0.0-0.8); Eosinophils # 0.5 10*3/uL (0.0-0.87); Eosinophils % 5.7 % (0.00-10.9); Hematocrit 34.3 VOL% (35.7-47.0); Hemoglobin 10.8 GM/DL (12.0-16.0); Immature Granulocytes % 0.9 %; Immature Granulocytes Absolute 0.07 #; Lymphocytes # 1.6 10*3/uL (1.4-4.0); Lymphocytes % 19.8 % (21.3-54.2); Mean Corpuscular HGB Conc 31.5 GM/DL (32-36); Mean Corpuscular Hemoglobin 31 PG (27-34); Mean Corpuscular Volume 98.6 FL (87-102); Mean Platelet Volume 10.3 FL (9.6-12.0); Monocytes # 1.1 10*3/uL (0.11-0.8); Monocytes % 13.8 % (1.7-12.7); Neutrophils # 4.7 10*3/uL (1.4-7.4); Neutrophils % 59.2 % (38.7-73.9); Platelet Count 192 T/CUMM (130-400); Red Blood Count 3.48 MC/CUMM (3.8-5.5); Red Cell Distribution Width 14.4 % (9.3-17.3); White Blood Count 7.9 T/CUMM (4-12)
[2016-06-28 09:08] LABS: Calcium 8.2 MG/DL (8.5-10.1); Osmolality,Calculated 289.8 MOS/KG (273-304); Potassium 4.4 MMOL/L (3.5-5.1)
[2016-06-28] MEDS: GABAPENTIN 300 MG CAPSULE PO SCH ×3 (09:20→21:10)
[2016-06-28] MEDS: FLUCONAZOLE 200 MG TABLET PO SCH (09:27)
[2016-06-28] MEDS: ANASTROZOLE 1 MG TABLET PO SCH (09:27)
--- NOTE | 2016-06-28 11:13 | Oncology Progress Note ---
Assessment and Plan (1) Breast cancer Status: Acute Assessment and plan: We will continue the patient's aromatase inhibitor for breast cancer with bone metastasis. Continue levofloxacin and await blood cultures. [place] acyclovir and gabapentin for herpes zoster with analgesia as needed Current Visit: No Oncology Subjective PN Interval history: Hospital day 3 for patient with gram-negative bacteremia responding to IV Levaquin. She is up in the chair and appears nontoxic. Still awaiting urine culture results after nearly 48 hours. We are also treating for T5 left-sided herpes zoster that is improved today after the initiation of gabapentin and acyclovir. We will keep inpatient for several more days to treat her bacteremia Do not call me about sepsis Exam - Constitutional Vitals: Period Temp Pulse Resp BP Sys/Garcia Pulse Ox Last 24 Hr 96.4 F-98.6 F 85-100 18-20 116-142/56-86 92-97 Results - Labs CBC & BMP: 06/28/16 07:53 06/28/16 07:53
[2016-06-28] MEDS: SODIUM CHLORIDE 0.45% 1,000 ML IV SCH (21:07)
[2016-06-28] MEDS: LEVOFLOXACIN INJ 750 MG in PREMIX 1 EACH IV SCH (21:08)
[2016-06-28] MEDS: ENOXAPARIN 40 MG/0.4 ML SYRINGE SUBCUT SCH (21:10)
[2016-06-29] MEDS: ACYCLOVIR 200 MG CAPSULE PO SCH ×5 (06:43→22:37)
[2016-06-29] MEDS: ANASTROZOLE 1 MG TABLET PO SCH (09:25)
[2016-06-29] MEDS: GABAPENTIN 300 MG CAPSULE PO SCH ×3 (09:25→22:37)
[2016-06-29] MEDS: FLUCONAZOLE 200 MG TABLET PO SCH (09:26)
--- NOTE | 2016-06-29 09:57 | Oncology Progress Note ---
Oncology Subjective PN Interval history: Patient with metastatic breast cancer with bone metastases only. She is in with Pseudomonas sepsis and with shingles. In addition she has a heat rash on her left breast that may have a component of fungal infection so I am ordering Lotrimin cream. She is on Levaquin which the Pseudomonas is sensitive to. Her bone pain seems to be relatively controlled. She is having a lot of itching and I am starting her on Pepcid she does not want another antihistamine so we will try the Pepcid and see if that will help. Her lungs are clear. Heart sounds are normal. Cranial nerves II through XII are intact. There are no focal neurologic deficits. The shingles is on her right thorax. The rash on the left side appears to be more of a tinea or heat rash. See my orders. Exam - Constitutional Vitals: Period Temp Pulse Resp BP Sys/Garcia Pulse Ox Last 24 Hr 96.3 F-98.8 F 88-103 16-20 106-148/51-93 89-99 Results - Labs CBC & BMP: 06/28/16 07:53 06/28/16 07:53
[2016-06-29] MEDS: CLOTRIMAZOLE 1% CREAM 15 GM TUBE TOP SCH ×2 (14:31→22:37)
[2016-06-29] MEDS: FAMOTIDINE 20 MG TABLET PO SCH ×2 (14:31→22:37)
[2016-06-29] MEDS: SODIUM CHLORIDE 0.45% 1,000 ML IV SCH (22:33)
[2016-06-29] MEDS: LEVOFLOXACIN INJ 750 MG in PREMIX 1 EACH IV SCH (22:35)
[2016-06-30] MEDS: ENOXAPARIN 40 MG/0.4 ML SYRINGE SUBCUT SCH ×2 (00:25→20:49)
[2016-06-30] MEDS: ACYCLOVIR 200 MG CAPSULE PO SCH ×5 (06:33→22:36)
[2016-06-30] MEDS: GABAPENTIN 300 MG CAPSULE PO SCH ×3 (09:06→20:48)
[2016-06-30] MEDS: ANASTROZOLE 1 MG TABLET PO SCH (09:06)
[2016-06-30] MEDS: FAMOTIDINE 20 MG TABLET PO SCH ×2 (09:06→20:49)
[2016-06-30] MEDS: FLUCONAZOLE 200 MG TABLET PO SCH (09:06)
[2016-06-30] MEDS: CLOTRIMAZOLE 1% CREAM 15 GM TUBE TOP SCH ×2 (09:07→20:54)
--- NOTE | 2016-06-30 10:59 | Oncology Progress Note ---
Oncology Subjective PN Interval history: Patient with metastatic breast cancer with bone metastases only. She is complaining of increasing shoulder pain bilaterally, worse on the left than the right. She may need cervical spine x-rays because it appears that this pain is originating in her neck. She is in with Pseudomonas sepsis and with shingles. The last fever above 100.2 was on June 26, 2016. The temperature on June 27 just after midnight was 100.2 in all body temperature since that time have been normal. In addition she has a heat rash on her left breast that may have a component of fungal infection so I am ordering Lotrimin cream. She is on Levaquin which the Pseudomonas is sensitive to. Her bone pain seems to be relatively controlled. She is having a lot of itching and I am starting her on Pepcid she does not want another antihistamine so we will try the Pepcid and see if that will help. The itching is modestly better today so I am not adding any additional medication. I would favor trying Zyrtec but she does not really want to do that. Her lungs are clear. Heart sounds are normal. Cranial nerves II through XII are intact. There are no focal neurologic deficits. The shingles is on her right thorax. The rash on the left side appears to be more of a tinea or heat rash. Exam - Constitutional Vitals: Period Temp Pulse Resp BP Sys/Garcia Pulse Ox Last 24 Hr 96.4 F-98.2 F 80-93 16-20 107-135/51-66 90-93 Results - Labs CBC & BMP: 06/28/16 07:53 06/28/16 07:53
[2016-06-30 12:25] LABS: Basophils % 0.5 % (0.0-0.8); Eosinophils # 0.4 10*3/uL (0.0-0.87); Eosinophils % 5.2 % (0.00-10.9); Hematocrit 35.1 VOL% (35.7-47.0); Hemoglobin 11.1 GM/DL (12.0-16.0); Immature Granulocytes % 1.5 %; Immature Granulocytes Absolute 0.11 #; Lymphocytes # 1.9 10*3/uL (1.4-4.0); Lymphocytes % 25.8 % (21.3-54.2); Mean Corpuscular HGB Conc 31.6 GM/DL (32-36); Mean Corpuscular Hemoglobin 31 PG (27-34); Mean Corpuscular Volume 98.6 FL (87-102); Mean Platelet Volume 10.3 FL (9.6-12.0); Monocytes # 0.8 10*3/uL (0.11-0.8); Monocytes % 10.6 % (1.7-12.7); Neutrophils # 4.2 10*3/uL (1.4-7.4); Neutrophils % 56.4 % (38.7-73.9); Platelet Count 226 T/CUMM (130-400); Red Blood Count 3.56 MC/CUMM (3.8-5.5); Red Cell Distribution Width 14.1 % (9.3-17.3); White Blood Count 7.5 T/CUMM (4-12)
[2016-06-30 13:02] LABS: Alanine Aminotransferase 22 U/L (13-56); Albumin 3.1 G/DL (3.4-5.0); Alkaline Phosphatase 69 U/L (45-117); Aspartate Amino Transferase 20 U/L (0-37); Bilirubin,Total < 0.39 MG/DL (0.2-1.0); Blood Urea Nitrogen 16 MG/DL (7-18); Calcium 8.8 MG/DL (8.5-10.1); Glucose 91 MG/DL (74-106); Potassium 4.3 MMOL/L (3.5-5.1); Sodium 143 MMOL/L (136-145); Total Protein 6.8 G/DL (6.4-8.3)
[2016-06-30] MEDS: LEVOFLOXACIN INJ 750 MG in PREMIX 1 EACH IV SCH (20:50)
[2016-07-01] MEDS: SODIUM CHLORIDE 0.45% 1,000 ML IV SCH ×2 (00:32→00:35)
[2016-07-01] MEDS: ACYCLOVIR 200 MG CAPSULE PO SCH ×5 (06:18→21:29)
--- NOTE | 2016-07-01 08:59 | Oncology Progress Note ---
Assessment and Plan (1) Breast cancer Status: Acute Assessment and plan: We will continue the patient's aromatase inhibitor for breast cancer with bone metastasis. Continue levofloxacin and await blood cultures. [place] acyclovir and gabapentin for herpes zoster with analgesia as needed Current Visit: No Oncology Subjective PN Interval history: Patient is afebrile. She has metastatic breast cancer with bone only metastasis. She is reporting some left shoulder pain. Her cultures demonstrate Pseudomonas with Levaquin sensitivity. Clinically she is improved and approaching her baseline state of chronic illness. She is awake alert and oriented breathing comfortably on room air. Left thoracic zoster has also diminished in its appearance. She is reporting some dizziness and gabapentin will be discontinued today with acyclovir and Levaquin continued. Possible discharge within 48 hours as today is hospital day 6 Exam - Constitutional Vitals: Period Temp Pulse Resp BP Sys/Garcia Pulse Ox Last 24 Hr 97.2 F-98.8 F 80-97 18-20 119-142/57-88 90-94 Results - Labs CBC & BMP: 06/30/16 11:15 06/30/16 11:15
[2016-07-01] MEDS: FLUCONAZOLE 200 MG TABLET PO SCH (09:53)
[2016-07-01] MEDS: FAMOTIDINE 20 MG TABLET PO SCH ×2 (09:54→21:29)
[2016-07-01] MEDS: CLOTRIMAZOLE 1% CREAM 15 GM TUBE TOP SCH ×2 (09:54→21:29)
[2016-07-01] MEDS: ANASTROZOLE 1 MG TABLET PO SCH (09:54)
[2016-07-01] MEDS: LEVOFLOXACIN INJ 750 MG in PREMIX 1 EACH IV SCH (21:28)
[2016-07-01] MEDS: ENOXAPARIN 40 MG/0.4 ML SYRINGE SUBCUT SCH (21:29)
[2016-07-02] MEDS: ACYCLOVIR 200 MG CAPSULE PO SCH ×5 (06:22→21:32)
--- NOTE | 2016-07-02 08:38 | Oncology Progress Note ---
Assessment and Plan (1) Breast cancer Status: Acute Assessment and plan: We will continue the patient's aromatase inhibitor for breast cancer with bone metastasis. Continue levofloxacin and await blood cultures. [place] acyclovir and gabapentin for herpes zoster with analgesia as needed Current Visit: No Oncology Subjective PN Interval history: Patient admitted with Pseudomonas infection. Afebrile and clinically nontoxic at this time. Her IV fluids were discontinued yesterday and she does have some lower extremity edema and venous congestion today. These are elevated as we speak. She is interested in perhaps swing bed placement as she wants to do everything possible to get better. Her metastatic malignancy is in a controlled position for the time being and she is on oral therapy only. I will plan for discharge tomorrow Exam - Constitutional Vitals: Period Temp Pulse Resp BP Sys/Garcia Pulse Ox Last 24 Hr 97.8 F-99.2 F 90-96 18-20 106-143/51-71 92-94 Results - Labs CBC & BMP: 06/30/16 11:15 06/30/16 11:15
[2016-07-02] MEDS: FLUCONAZOLE 200 MG TABLET PO SCH (09:40)
[2016-07-02] MEDS: FAMOTIDINE 20 MG TABLET PO SCH ×2 (09:41→21:33)
[2016-07-02] MEDS: CLOTRIMAZOLE 1% CREAM 15 GM TUBE TOP SCH ×2 (09:41→21:42)
[2016-07-02] MEDS: ANASTROZOLE 1 MG TABLET PO SCH (09:48)
[2016-07-02] MEDS ORDERED: HEPARIN LOCK FLUSH 500 UNIT/5 ML SYRINGE IV ONE (14:44)
[2016-07-02] MEDS: ENOXAPARIN 40 MG/0.4 ML SYRINGE SUBCUT SCH (21:32)
[2016-07-02] MEDS: LEVOFLOXACIN INJ 750 MG in PREMIX 1 EACH IV SCH (21:35)
[2016-07-03] MEDS: ACYCLOVIR 200 MG CAPSULE PO SCH ×3 (05:16→13:56)
[2016-07-03 05:47] LABS: Basophils # 0.1 10*3/uL (0.0-0.2); Basophils % 0.5 % (0.0-0.8); Eosinophils # 0.4 10*3/uL (0.0-0.87); Eosinophils % 4.5 % (0.00-10.9); Hematocrit 35.2 VOL% (35.7-47.0); Hemoglobin 11.2 GM/DL (12.0-16.0); Immature Granulocytes % 1.8 %; Immature Granulocytes Absolute 0.17 #; Lymphocytes # 2.8 10*3/uL (1.4-4.0); Lymphocytes % 29.4 % (21.3-54.2); Mean Corpuscular HGB Conc 31.8 GM/DL (32-36); Mean Corpuscular Hemoglobin 31 PG (27-34); Mean Corpuscular Volume 97.2 FL (87-102); Mean Platelet Volume 10.2 FL (9.6-12.0); Monocytes # 0.9 10*3/uL (0.11-0.8); Monocytes % 9.7 % (1.7-12.7); Neutrophils # 5.1 10*3/uL (1.4-7.4); Neutrophils % 54.1 % (38.7-73.9); Platelet Count 246 T/CUMM (130-400); Red Blood Count 3.62 MC/CUMM (3.8-5.5); Red Cell Distribution Width 14.1 % (9.3-17.3); White Blood Count 9.4 T/CUMM (4-12)
--- NOTE | 2016-07-03 09:04 | Oncology Progress Note ---
Assessment and Plan (1) Breast cancer Status: Acute Assessment and plan: We will continue the patient's aromatase inhibitor for breast cancer with bone metastasis. Continue levofloxacin and await blood cultures. [place] acyclovir and gabapentin for herpes zoster with analgesia as needed Current Visit: No Oncology Subjective PN Interval history: Patient admitted from the office with chills and fever. Blood cultures are positive for Pseudomonas. She has received IV levofloxacin for 7 days with good clinical improvement. She was also noted to have left-sided herpes zoster near the T5 dermatome. This is been treated with gabapentin and acyclovir with significant improvement of the cutaneous findings. She is treated by [facility] for breast cancer metastatic with bone only metastasis. She is on oral estrogen deprivation therapy for this. She is elderly and chronically weak and is being evaluated today as a candidate for rehab. Exam - Constitutional Vitals: Period Temp Pulse Resp BP Sys/Garcia Pulse Ox Last 24 Hr 97.5 F-98.6 F 90-102 18-20 114-129/53-75 92-100 Results - Labs CBC & BMP: 07/03/16 04:00 06/30/16 11:15
[2016-07-03] MEDS: ANASTROZOLE 1 MG TABLET PO SCH (09:33)
[2016-07-03] MEDS: FAMOTIDINE 20 MG TABLET PO SCH (09:33)
[2016-07-03] MEDS: FLUCONAZOLE 200 MG TABLET PO SCH (09:34)
[2016-07-03] MEDS: GABAPENTIN 300 MG CAPSULE PO SCH (09:41)
[2016-07-03] MEDS: CLOTRIMAZOLE 1% CREAM 15 GM TUBE TOP SCH (09:42)
[2016-07-03] MEDS ORDERED: HEPARIN LOCK FLUSH 500 UNIT/5 ML SYRINGE IV ONE (12:44)
[2016-07-03 14:10] VITALS: BP 125/60
--- NOTE | 2016-07-30 08:32 | Discharge Summary ---
Hospital Course - Hospital Course Hospital Course: Patient admitted from my office with chills and fever. Blood cultures were positive for Pseudomonas. She received IV levofloxacin for 7 days with good clinical improvement. She was also noted to have left-sided herpes zoster near the T5 dermatome. This was treated with gabapentin and acyclovir with significant improvement of the cutaneous findings. She is treated by me for breast cancer metastatic with bone only metastasis. She is on oral estrogen deprivation therapy for this. The patient was accepted for rehabilitation stay and was discharged on further oral antibiotics with oncology follow-up to be scheduled. Diagnosis - Discharge Diagnosis (1) Breast cancer Status: Acute Specialty Discharge - Follow Up or Referrals Follow up with: Juna Powell MD [Physician] - 07/17/16 1:20 pm (Labs on July 17 at 1250PM, visit at 120PM.) Discharge Plan - Discharge Data Disposition: Swing Bed, [facility], [facility] - Discharge Medications No Action Anastrozole 1 mg PO DAILY Fluconazole Tab [Diflucan Tab] 100 mg PO DAILY #4 tablet Ketoconazole 2% Cream [Nizoral 2% Cream] 1 applic TOP BID #30 applic - Follow Up or Referral Follow Up: Juan Powell MD [Physician] - 07/17/16 1:20 pm (Labs on July 17 at 1250PM, visit at 120PM.) - Forms/Instructions DS: Provider Date of admission: 06/26/16 17:32 Primary care physician: Karolina Youssef MD Attending physician on admission: Juan Powell MD Consults: 06/26/16 19:09 Consult to Dietitian [CONS] Routine Reason for Dietitian: Dietary Consult 07/01/16 08:46 Consult to Physical Therapy [CONS] Routine Reason for Physical Therapy: Evaluate and Treat Weakness Start Therapy: Today 07/02/16 10:26 Consult to Case Mgmt/Social Srvs [CONS] Routine Reason for Case Mgmt/Social Srvs: Swingbed/SNF/Halfway Discharging clinician: Juan Powell MD
== END 2016-07-03 13:50 | disposition swing bed (61) | DRG 872 ==
LOC: N.4E 17:32
PROVIDERS: ADMIT Specialist; ATTEND Specialist

== ENCOUNTER 2017-08-02 14:39 | Inpatient (IN) ==
[2017-08-02] MEDS ORDERED: ZALEPLON 5 MG CAPSULE PO PRN (16:02)
[2017-08-02] MEDS ORDERED: ACETAMINOPHEN 325 MG TABLET PO PRN (16:02)
[2017-08-02] MEDS ORDERED: diphenhydrAMINE CAP 25 MG CAPSULE PO PRN (16:02)
[2017-08-02] MEDS ORDERED: PROMETHAZINE 25 MG/1 ML VIAL IM PRN (16:02)
[2017-08-02] MEDS ORDERED: WHITE PETROLATUM 30 GM TUBE TOP PRN (16:19)
[2017-08-02] MEDS: CIPROFLOXACIN 500 MG TABLET PO SCH ×2 (17:37→20:36)
[2017-08-02] MEDS: PANTOPRAZOLE 40 MG TABLET PO SCH (17:38)
[2017-08-02 17:42] LABS: Basophils # 0.1 10*3/uL (0.0-0.2); Basophils % 1.3 % (0.0-0.8); Eosinophils # 0.1 10*3/uL (0.0-0.87); Eosinophils % 2.6 % (0.00-10.9); Hematocrit 31.7 VOL% (35.7-47.0); Hemoglobin 10.5 GM/DL (12.0-16.0); Immature Granulocytes Absolute 0.04 #; Lymphocytes # 1.5 10*3/uL (1.4-4.0); Lymphocytes % 38.9 % (21.3-54.2); Mean Corpuscular HGB Conc 33.1 GM/DL (32-36); Mean Corpuscular Hemoglobin 32 PG (27-34); Mean Corpuscular Volume 95.5 FL (87-102); Mean Platelet Volume 9.5 FL (9.6-12.0); Monocytes # 0.8 10*3/uL (0.11-0.8); Monocytes % 21.4 % (1.7-12.7); Neutrophils # 1.4 10*3/uL (1.4-7.4); Neutrophils % 34.8 % (38.7-73.9); Platelet Count 284 T/CUMM (130-400); Red Blood Count 3.32 MC/CUMM (3.8-5.5); Red Cell Distribution Width 16.9 % (9.3-17.3); White Blood Count 3.9 T/CUMM (4-12)
[2017-08-02 18:02] LABS: Calcium 8.5 MG/DL (8.5-10.1); Osmolality,Calculated 282.3 MOS/KG (273-304); Potassium 4.3 MMOL/L (3.5-5.1)
[2017-08-02] MEDS: HYDROCORTISONE 1% OINT 28.35 GM TUBE TOP PRN (18:02)
[2017-08-02 19:19] LABS: Eosinophils 2 % (0-10); Lymphocytes 45 % (20-55); Platelet Estimate Normal; Segmented Neutrophils 35 % (50-85); Total Cells Counted 100
[2017-08-02] MEDS: SILVER SULFADIAZINE 1% CREAM 400 GM JAR TOP SCH (20:35)
[2017-08-02] MEDS: ENOXAPARIN 40 MG/0.4 ML SYRINGE SUBCUT SCH (20:37)
[2017-08-02] MEDS ORDERED: SILVER SULFADIAZINE 1% CREAM 25 GM TUBE TOP SCH (21:00)
[2017-08-03] MEDS ORDERED: MEROPENEM 1,000 MG in SYRINGE 1 EACH IV SCH (10:00)
[2017-08-03] MEDS: CIPROFLOXACIN 500 MG TABLET PO SCH ×2 (10:00→21:07)
[2017-08-03] MEDS: PANTOPRAZOLE 40 MG TABLET PO SCH (10:01)
[2017-08-03] MEDS: oxyCODONE/ACETAMINOPHEN 5-325 MG TABLET PO PRN ×2 (10:01→16:55)
[2017-08-03] MEDS: SILVER SULFADIAZINE 1% CREAM 400 GM JAR TOP SCH ×2 (10:04→21:11)
[2017-08-03] MEDS: ENOXAPARIN 40 MG/0.4 ML SYRINGE SUBCUT SCH (21:08)
[2017-08-04] MEDS: HYDROCORTISONE 1% OINT 28.35 GM TUBE TOP PRN ×2 (03:30→15:20)
[2017-08-04] MEDS: CIPROFLOXACIN 500 MG TABLET PO SCH ×2 (09:29→20:39)
[2017-08-04] MEDS: PANTOPRAZOLE 40 MG TABLET PO SCH (09:30)
[2017-08-04] MEDS: oxyCODONE/ACETAMINOPHEN 5-325 MG TABLET PO PRN (12:45)
[2017-08-04] MEDS: SILVER SULFADIAZINE 1% CREAM 400 GM JAR TOP SCH ×2 (15:20→21:15)
[2017-08-04] MEDS: NYSTATIN OINT 15 GM TUBE TOP SCH ×2 (18:46→22:26)
[2017-08-04] MEDS: ENOXAPARIN 40 MG/0.4 ML SYRINGE SUBCUT SCH (20:39)
[2017-08-05 06:54] LABS: Basophils # 0.1 10*3/uL (0.0-0.2); Basophils % 1.7 % (0.0-0.8); Eosinophils # 0.1 10*3/uL (0.0-0.87); Eosinophils % 2.9 % (0.00-10.9); Hemoglobin 10.3 GM/DL (12.0-16.0); Immature Granulocytes % 0.7 %; Immature Granulocytes Absolute 0.03 #; Lymphocytes # 1.7 10*3/uL (1.4-4.0); Lymphocytes % 39.4 % (21.3-54.2); Mean Corpuscular HGB Conc 32.2 GM/DL (32-36); Mean Corpuscular Hemoglobin 31 PG (27-34); Mean Platelet Volume 9.2 FL (9.6-12.0); Monocytes # 0.7 10*3/uL (0.11-0.8); Monocytes % 16.9 % (1.7-12.7); Neutrophils # 1.6 10*3/uL (1.4-7.4); Neutrophils % 38.4 % (38.7-73.9); Platelet Count 307 T/CUMM (130-400); Red Cell Distribution Width 17.1 % (9.3-17.3); White Blood Count 4.2 T/CUMM (4-12)
[2017-08-05 07:24] LABS: Calcium 8.9 MG/DL (8.5-10.1); Osmolality,Calculated 282.4 MOS/KG (273-304); Potassium 4.3 MMOL/L (3.5-5.1)
[2017-08-05 07:36] LABS: Atypical Lymphocytes Few; Band Neutrophils 5 % (0-10); Eosinophils 9 % (0-10); Hypochromasia 1+; Lymphocytes 30 % (20-55); Segmented Neutrophils 41 % (50-85); Total Cells Counted 100
[2017-08-05 07:37] LABS: Macrocytosis 1+; Platelet Estimate Normal
[2017-08-05] MEDS: CIPROFLOXACIN 500 MG TABLET PO SCH ×2 (09:43→21:33)
[2017-08-05] MEDS: PANTOPRAZOLE 40 MG TABLET PO SCH (09:44)
[2017-08-05] MEDS: NYSTATIN OINT 15 GM TUBE TOP SCH ×3 (18:45→21:33)
[2017-08-05] MEDS: SILVER SULFADIAZINE 1% CREAM 400 GM JAR TOP SCH ×2 (18:45→20:25)
[2017-08-05] MEDS: ENOXAPARIN 40 MG/0.4 ML SYRINGE SUBCUT SCH (21:32)
[2017-08-06] MEDS: PANTOPRAZOLE 40 MG TABLET PO SCH (08:53)
[2017-08-06] MEDS: CIPROFLOXACIN 500 MG TABLET PO SCH ×2 (08:53→21:24)
[2017-08-06] MEDS: NYSTATIN OINT 15 GM TUBE TOP SCH ×3 (08:54→21:24)
[2017-08-06] MEDS: SILVER SULFADIAZINE 1% CREAM 400 GM JAR TOP SCH ×2 (08:55→21:24)
[2017-08-06] MEDS: ENOXAPARIN 40 MG/0.4 ML SYRINGE SUBCUT SCH (21:24)
[2017-08-07] MEDS ORDERED: CHLORHEXIDINE 4% SOLN 118 ML BOTTLE TOP ONE (08:39)
[2017-08-07] MEDS ORDERED: SKIN HEALING OINT (AQUAPHOR) 50 GM TUBE TOP PRN (08:39)
[2017-08-07] MEDS: PANTOPRAZOLE 40 MG TABLET PO SCH (09:40)
[2017-08-07] MEDS: CIPROFLOXACIN 500 MG TABLET PO SCH (09:40)
[2017-08-07] MEDS: NYSTATIN OINT 15 GM TUBE TOP SCH (10:46)
[2017-08-07] MEDS: SILVER SULFADIAZINE 1% CREAM 400 GM JAR TOP SCH (10:46)
[2017-08-07 16:38] VITALS: BP 134/57
== END 2017-08-07 17:09 | disposition swing bed (61) | DRG 603 ==
LOC: N.3E 14:40 → SUATTDRO 15:59 → SUPCPDRO 15:59
PROVIDERS: ADMIT Internal Medicine; ATTEND Internal Medicine Cardiovascular Disease

== ENCOUNTER 2018-06-16 14:54 | Inpatient (IN) ==
[2018-06-16 17:44] LABS: Basophils % 0.4 % (0.0-0.8); Eosinophils # 0.1 10*3/uL (0.0-0.87); Eosinophils % 0.4 % (0.00-10.9); Hematocrit 31.6 VOL% (35.7-47.0); Hemoglobin 9.2 GM/DL (12.0-16.0); Immature Granulocytes % 0.5 %; Immature Granulocytes Absolute 0.06 #; Lymphocytes # 1.4 10*3/uL (1.4-4.0); Lymphocytes % 11.9 % (21.3-54.2); Mean Corpuscular HGB Conc 29.1 GM/DL (32-36); Mean Corpuscular Hemoglobin 27 PG (27-34); Mean Corpuscular Volume 93.5 FL (87-102); Mean Platelet Volume 10.2 FL (9.6-12.0); Monocytes # 1.6 10*3/uL (0.11-0.8); Monocytes % 14.4 % (1.7-12.7); Neutrophils # 8.2 10*3/uL (1.4-7.4); Neutrophils % 72.4 % (38.7-73.9); Platelet Count 353 T/CUMM (130-400); Red Blood Count 3.38 MC/CUMM (3.8-5.5); Red Cell Distribution Width 18.2 % (9.3-17.3); White Blood Count 11.4 T/CUMM (4-12)
[2018-06-16 17:55] LABS: Calcium 8.4 MG/DL (8.5-10.1); Osmolality,Calculated 280.8 MOS/KG (273-304); Potassium 3.8 MMOL/L (3.5-5.1)
[2018-06-16] MEDS ORDERED: ACETAMINOPHEN 325 MG TABLET PO PRN (18:06)
[2018-06-16] MEDS ORDERED: ONDANSETRON 4 MG/2 ML VIAL IV PRN (18:06)
[2018-06-16] MEDS ORDERED: LEVALBUTEROL 0.63 MG/3 ML NEB RESP TX PRN (18:16)
[2018-06-16] MEDS: ENOXAPARIN 40 MG/0.4 ML SYRINGE SUBCUT SCH (23:24)
[2018-06-17 03:35] LABS: Apearance,Urine CLEAR (Clear); Bilirubin,Urine Negative (Negative); Blood, Urine Negative (Negative); Glucose,Urine (UA) Negative (Negative); Hyaline Casts,Urine 1 /LPF (0-3); Ketones,Urine Negative (Negative); Mucus,Urine Occasional /LPF (Occasional); Nitrite,Urine Negative (Negative); Protein,Urine 30 MG/DL; RBC,Urine 2 /HPF (0-4); Squamous Epithelial Cell,Urine Occasional /HPF (0-10); Urine Color Amber (Yellow); WBC,Urine 15 /HPF (0-6)
[2018-06-17 04:19] LABS: Basophils % 0.3 % (0.0-0.8); Eosinophils # 0.1 10*3/uL (0.0-0.87); Eosinophils % 1.1 % (0.00-10.9); Hematocrit 30.3 VOL% (35.7-47.0); Hemoglobin 8.8 GM/DL (12.0-16.0); Immature Granulocytes % 0.3 %; Immature Granulocytes Absolute 0.03 #; Lymphocytes # 1.3 10*3/uL (1.4-4.0); Lymphocytes % 10.9 % (21.3-54.2); Mean Corpuscular Hemoglobin 27 PG (27-34); Mean Corpuscular Volume 92.7 FL (87-102); Mean Platelet Volume 10.7 FL (9.6-12.0); Monocytes # 1.8 10*3/uL (0.11-0.8); Monocytes % 15.7 % (1.7-12.7); Neutrophils # 8.3 10*3/uL (1.4-7.4); Neutrophils % 71.7 % (38.7-73.9); Platelet Count 349 T/CUMM (130-400); Red Blood Count 3.27 MC/CUMM (3.8-5.5); Red Cell Distribution Width 18.2 % (9.3-17.3); White Blood Count 11.5 T/CUMM (4-12)
[2018-06-17 04:25] LABS: INR 1.1; PT Patient Result 11.7 SECS
[2018-06-17 04:52] LABS: Eosinophils 2 % (0-10); Hypochromasia Slight; Lymphocytes 20 % (20-55); Platelet Estimate Normal; Polychromasia Few; Segmented Neutrophils 75 % (50-85); Total Cells Counted 100
[2018-06-17 04:55] LABS: Calcium 8.4 MG/DL (8.5-10.1); Osmolality,Calculated 277.8 MOS/KG (273-304); Risk Ratio 2.82; Thyroid Stimulating Hormone 1.08 uIU/ml (0.358-3.74); VLDL CHOLESTEROL 14.8 MG/DL
[2018-06-17] MEDS: PANTOPRAZOLE 40 MG TABLET PO SCH (08:36)
[2018-06-17] MEDS: NYSTATIN POWDER 15 GM BOTTLE TOP SCH (08:37)
[2018-06-17] MEDS: FUROSEMIDE 20 MG TABLET PO SCH (08:37)
[2018-06-17] MEDS ORDERED: ASCORBIC ACID 500 MG TABLET PO SCH (09:00)
[2018-06-17] MEDS: METOPROLOL TARTRATE 25 MG TABLET PO SCH ×2 (14:26→21:07)
[2018-06-17] MEDS: ASCORBIC ACID 500 MG TABLET PO SCH ×2 (21:07→21:09)
[2018-06-17] MEDS: ENOXAPARIN 40 MG/0.4 ML SYRINGE SUBCUT SCH (21:07)
[2018-06-18 05:50] LABS: Basophils % 0.4 % (0.0-0.8); Eosinophils # 0.2 10*3/uL (0.0-0.87); Eosinophils % 2.5 % (0.00-10.9); Hematocrit 30.8 VOL% (35.7-47.0); Hemoglobin 8.7 GM/DL (12.0-16.0); Immature Granulocytes % 0.6 %; Immature Granulocytes Absolute 0.06 #; Lymphocytes # 1.2 10*3/uL (1.4-4.0); Lymphocytes % 12.7 % (21.3-54.2); Mean Corpuscular HGB Conc 28.2 GM/DL (32-36); Mean Corpuscular Hemoglobin 27 PG (27-34); Mean Corpuscular Volume 95.1 FL (87-102); Monocytes # 1.4 10*3/uL (0.11-0.8); Monocytes % 14.7 % (1.7-12.7); Neutrophils # 6.4 10*3/uL (1.4-7.4); Neutrophils % 69.1 % (38.7-73.9); Platelet Count 367 T/CUMM (130-400); Red Blood Count 3.24 MC/CUMM (3.8-5.5); White Blood Count 9.3 T/CUMM (4-12)
[2018-06-18 06:00] LABS: Calcium 8.3 MG/DL (8.5-10.1); Osmolality,Calculated 281.5 MOS/KG (273-304); Potassium 4.2 MMOL/L (3.5-5.1)
[2018-06-18 06:18] LABS: Hypochromasia 1+; Platelet Estimate Adequate
[2018-06-18] MEDS: PANTOPRAZOLE 40 MG TABLET PO SCH (09:11)
[2018-06-18] MEDS: METOPROLOL TARTRATE 25 MG TABLET PO SCH ×2 (09:12→22:13)
[2018-06-18] MEDS: NYSTATIN POWDER 15 GM BOTTLE TOP SCH (09:12)
[2018-06-18] MEDS: FUROSEMIDE 20 MG TABLET PO SCH (09:12)
[2018-06-18] MEDS: ASCORBIC ACID 500 MG TABLET PO SCH ×2 (09:12→22:12)
[2018-06-18] MEDS ORDERED: FUROSEMIDE 40 MG/4 ML VIAL IV SCH (10:30)
[2018-06-18] MEDS: ENOXAPARIN 40 MG/0.4 ML SYRINGE SUBCUT SCH (22:12)
[2018-06-18] MEDS: ZINC OXIDE PASTE 113 GM TUBE TOP SCH (22:13)
[2018-06-19] MEDS: ASCORBIC ACID 500 MG TABLET PO SCH ×2 (10:04→21:39)
[2018-06-19] MEDS: FUROSEMIDE 40 MG TABLET PO SCH (10:04)
[2018-06-19] MEDS: NYSTATIN POWDER 15 GM BOTTLE TOP SCH (10:33)
[2018-06-19] MEDS: ZINC OXIDE PASTE 113 GM TUBE TOP SCH ×2 (10:33→21:56)
[2018-06-19] MEDS: LEVOFLOXACIN 750 MG TABLET PO SCH (10:33)
[2018-06-19] MEDS: PANTOPRAZOLE 40 MG TABLET PO SCH (11:04)
[2018-06-19] MEDS: METOPROLOL TARTRATE 25 MG TABLET PO SCH ×3 (11:05→23:10)
[2018-06-19] MEDS: ENOXAPARIN 40 MG/0.4 ML SYRINGE SUBCUT SCH (21:40)
[2018-06-20] MEDS: ASCORBIC ACID 500 MG TABLET PO SCH ×2 (09:15→21:30)
[2018-06-20] MEDS: FUROSEMIDE 40 MG TABLET PO SCH (09:16)
[2018-06-20] MEDS: METOPROLOL TARTRATE 25 MG TABLET PO SCH ×2 (09:16→21:30)
[2018-06-20] MEDS: LEVOFLOXACIN 750 MG TABLET PO SCH (09:16)
[2018-06-20] MEDS: PANTOPRAZOLE 40 MG TABLET PO SCH (09:16)
[2018-06-20] MEDS: ZINC OXIDE PASTE 113 GM TUBE TOP SCH ×2 (09:19→21:31)
[2018-06-20] MEDS: NYSTATIN POWDER 15 GM BOTTLE TOP SCH (09:19)
[2018-06-20] MEDS: ENOXAPARIN 40 MG/0.4 ML SYRINGE SUBCUT SCH (21:30)
[2018-06-21] MEDS: ZINC OXIDE PASTE 113 GM TUBE TOP SCH ×2 (09:59→20:50)
[2018-06-21] MEDS: NYSTATIN POWDER 15 GM BOTTLE TOP SCH (10:00)
[2018-06-21] MEDS: ASCORBIC ACID 500 MG TABLET PO SCH ×2 (10:00→20:50)
[2018-06-21] MEDS: LEVOFLOXACIN 750 MG TABLET PO SCH (10:00)
[2018-06-21] MEDS: FUROSEMIDE 40 MG TABLET PO SCH (10:00)
[2018-06-21] MEDS: METOPROLOL TARTRATE 25 MG TABLET PO SCH ×2 (10:00→20:49)
[2018-06-21] MEDS: PANTOPRAZOLE 40 MG TABLET PO SCH (10:00)
[2018-06-21] MEDS: ENOXAPARIN 40 MG/0.4 ML SYRINGE SUBCUT SCH (20:55)
[2018-06-22] MEDS: LEVOFLOXACIN 750 MG TABLET PO SCH (08:59)
[2018-06-22] MEDS: PANTOPRAZOLE 40 MG TABLET PO SCH (09:03)
[2018-06-22] MEDS: ASCORBIC ACID 500 MG TABLET PO SCH ×2 (09:03→21:45)
[2018-06-22] MEDS: METOPROLOL TARTRATE 25 MG TABLET PO SCH ×2 (09:03→21:39)
[2018-06-22] MEDS: FUROSEMIDE 40 MG TABLET PO SCH (09:03)
[2018-06-22] MEDS: ZINC OXIDE PASTE 113 GM TUBE TOP SCH ×2 (09:04→21:42)
[2018-06-22] MEDS: NYSTATIN POWDER 15 GM BOTTLE TOP SCH (09:04)
[2018-06-22] MEDS: ENOXAPARIN 40 MG/0.4 ML SYRINGE SUBCUT SCH (21:42)
[2018-06-23 06:49] LABS: Calcium 8.3 MG/DL (8.5-10.1); Osmolality,Calculated 283.3 MOS/KG (273-304)
[2018-06-23 08:13] VITALS: BP 119/62
[2018-06-23] MEDS: PANTOPRAZOLE 40 MG TABLET PO SCH (08:55)
[2018-06-23] MEDS: ASCORBIC ACID 500 MG TABLET PO SCH (08:55)
[2018-06-23] MEDS: METOPROLOL TARTRATE 25 MG TABLET PO SCH (08:55)
[2018-06-23] MEDS: LEVOFLOXACIN 750 MG TABLET PO SCH ×2 (08:55→08:57)
[2018-06-23] MEDS: FUROSEMIDE 40 MG TABLET PO SCH (08:55)
[2018-06-23] MEDS: ZINC OXIDE PASTE 113 GM TUBE TOP SCH (08:55)
[2018-06-23] MEDS: NYSTATIN POWDER 15 GM BOTTLE TOP SCH (08:56)
== END 2018-06-23 13:25 | disposition swing bed (61) | DRG 309 ==
LOC: N.TELEN → OBSVTOIN 16:24 → SUATTDRO 16:24
PROVIDERS: ADMIT Internal Medicine; ATTEND Internal Medicine

== ENCOUNTER 2018-08-20 09:57 | Inpatient (IN) ==
[2018-08-20 10:47] LABS: Albumin 2.2 G/DL (3.4-5.0); Bilirubin,Total 1.3 MG/DL (0.2-1.0); Calcium 8.8 MG/DL (8.5-10.1)
[2018-08-20 10:52] LABS: Basophils % 0.2 % (0.0-0.8); Eosinophils % 0.2 % (0.00-10.9); Hematocrit 37.6 VOL% (35.7-47.0); Immature Granulocytes % 0.8 %; Lymphocytes # 1.4 10*3/uL (1.4-4.0); Lymphocytes % 11.6 % (21.3-54.2); Mean Corpuscular HGB Conc 27.4 GM/DL (32-36); Mean Corpuscular Volume 95.9 FL (87-102); Mean Platelet Volume 10.4 FL (9.6-12.0); Monocytes % 13.3 % (1.7-12.7); Neutrophils % 73.9 % (38.7-73.9); Platelet Count 493 T/CUMM (130-400); Red Blood Count 3.92 MC/CUMM (3.8-5.5); Red Cell Distribution Width 20.9 % (9.3-17.3); White Blood Count 12.3 T/CUMM (4-12)
[2018-08-20 10:53] LABS: Hemoglobin 10.3 GM/DL (12.0-16.0)
[2018-08-20 10:54] LABS: Hypochromasia 1+
[2018-08-20 10:55] LABS: Anisocytosis 1+; Microcytosis 1+
[2018-08-20 11:07] LABS: Apearance,Urine Slightly Hazy (Clear); Bilirubin,Urine Negative (Negative); Blood, Urine Negative (Negative); Glucose,Urine (UA) Negative (Negative); Hyaline Casts,Urine 21 /LPF (0-3); Ketones,Urine Negative (Negative); Mucus,Urine Occasional /LPF (Occasional); Nitrite,Urine Negative (Negative); Protein,Urine 30 MG/DL; RBC,Urine 1 /HPF (0-4); Squamous Epithelial Cell,Urine Occasional /HPF (0-10); Urine Color Amber (Yellow); Urine Specific Gravity 1.017 (1.001-1.035); WBC,Urine 2 /HPF (0-6)
[2018-08-20 13:58] LABS: ABG Base Excess 13.8 MMOL/L (-2.5-2.5); ABG HCO3 37.4 MMOL/L (20-26); ABG Oxygen Saturation 85.3 % (95-100); ABG PO2 54.8 MM HG (80-95); Allen Test Positive
[2018-08-20 14:01] LABS: ABG PCO2 92.2 MM HG (35-48)
[2018-08-20] MEDS ORDERED: ONDANSETRON 4 MG/2 ML VIAL IV PRN (15:13)
[2018-08-20] MEDS ORDERED: ALBUTEROL 2.5 MG/3 ML NEB RESP TX PRN (15:13)
[2018-08-20] MEDS: FUROSEMIDE 40 MG/4 ML VIAL IV SCH (16:34)
[2018-08-20] MEDS: ENOXAPARIN 40 MG/0.4 ML SYRINGE SUBCUT SCH (16:34)
[2018-08-20 17:06] LABS: Apearance,Urine Slightly Hazy (Clear); Bilirubin,Urine Negative (Negative); Blood, Urine Small mg/dL (Negative); Glucose,Urine (UA) Negative (Negative); Hyaline Casts,Urine 2 /LPF (0-3); Ketones,Urine Negative (Negative); Mucus,Urine Occasional /LPF (Occasional); Nitrite,Urine Negative (Negative); Protein,Urine Negative; RBC,Urine 1 /HPF (0-4); Urine Color Dark yellow (Yellow); Urine Specific Gravity 1.014 (1.001-1.035); WBC,Urine 1 /HPF (0-6)
[2018-08-20] MEDS: methylPREDNISolone SOD SUC 40 MG/1 ML VIAL IV SCH (19:00)
[2018-08-20 19:33] LABS: ABG Base Excess 14.2 MMOL/L (-2.5-2.5); ABG HCO3 37.9 MMOL/L (20-26); ABG Oxygen Saturation 91.9 % (95-100); ABG PO2 62.1 MM HG (80-95); ABG TCO2 38.7 MMOL/L (23-27)
[2018-08-20 19:34] LABS: Allen Test Positive; Pt O2 Delivery Device BIPAP
[2018-08-20] MEDS: ALBUTEROL/IPRATROPIUM 3 ML NEB RESP TX SCH (19:35)
[2018-08-20 19:38] LABS: ABG PCO2 69.5 MM HG (35-48)
[2018-08-20] MEDS: FAMOTIDINE 20 MG/2 ML VIAL IV SCH (20:25)
[2018-08-20] MEDS: ALPRAZolam 0.5 MG TABLET PO PRN (20:27)
[2018-08-21] MEDS: ALBUTEROL/IPRATROPIUM 3 ML NEB RESP TX SCH ×4 (01:32→20:48)
[2018-08-21] MEDS: methylPREDNISolone SOD SUC 40 MG/1 ML VIAL IV SCH ×3 (03:48→18:04)
[2018-08-21 04:28] LABS: ABG Base Excess 12.7 MMOL/L (-2.5-2.5); ABG HCO3 36.4 MMOL/L (20-26); ABG Oxygen Saturation 93.2 % (95-100); ABG PH 7.289 (7.35-7.45); ABG PO2 73.4 MM HG (80-95); ABG TCO2 39.8 MMOL/L (23-27); Allen Test Positive; Pt O2 Delivery Device BIPAP
[2018-08-21 04:57] LABS: ABG PCO2 88.6 MM HG (35-48)
[2018-08-21 05:26] LABS: Basophils % 0.1 % (0.0-0.8); Eosinophils % 0.1 % (0.00-10.9); Hematocrit 29.9 VOL% (35.7-47.0); Immature Granulocytes % 0.4 %; Immature Granulocytes Absolute 0.03 #; Lymphocytes # 0.5 10*3/uL (1.4-4.0); Lymphocytes % 5.9 % (21.3-54.2); Mean Corpuscular HGB Conc 28.8 GM/DL (32-36); Mean Corpuscular Volume 94.3 FL (87-102); Mean Platelet Volume 11.5 FL (9.6-12.0); Monocytes % 5.3 % (1.7-12.7); NRBC # 0.02 10*3/uL; Neutrophils % 88.2 % (38.7-73.9); Platelet Count 337 T/CUMM (130-400); Red Blood Count 3.17 MC/CUMM (3.8-5.5); Red Cell Distribution Width 20.7 % (9.3-17.3); White Blood Count 8.3 T/CUMM (4-12)
[2018-08-21] MEDS ORDERED: ETOMIDATE 20 MG/10 ML VIAL IV ONE ×2 (05:26→05:43)
[2018-08-21 05:27] LABS: Hemoglobin 8.6 GM/DL (12.0-16.0)
[2018-08-21] MEDS ORDERED: SUCCINYLCHOLINE 200 MG/10 ML VIAL ONE (05:27)
[2018-08-21 05:33] LABS: Hypochromasia 1+; Microcytosis 1+; Platelet Estimate Normal; Polychromasia Few
[2018-08-21] MEDS ORDERED: PROPOFOL 1,000 MG/100 ML BOTTLE IV ONE ×2 (05:37→05:45)
[2018-08-21] MEDS ORDERED: SUCCINYLCHOLINE 200 MG/10 ML VIAL IV ONE (05:43)
[2018-08-21] MEDS: PROPOFOL 1,000 MG/100 ML BOTTLE IV SCH ×2 (05:46→17:01)
[2018-08-21 06:25] LABS: ABG Base Excess 12.8 MMOL/L (-2.5-2.5); ABG HCO3 36.6 MMOL/L (20-26); ABG Oxygen Saturation 97.4 % (95-100); ABG PO2 93.7 MM HG (80-95); ABG TCO2 38.4 MMOL/L (23-27); Allen Test Positive; Pt O2 Delivery Device Ventilator
[2018-08-21 06:26] LABS: ABG PCO2 77.1 MM HG (35-48)
[2018-08-21 07:49] LABS: Calcium 8.1 MG/DL (8.5-10.1); Osmolality,Calculated 289.3 MOS/KG (273-304)
[2018-08-21] MEDS: FUROSEMIDE 40 MG/4 ML VIAL IV SCH ×2 (10:04→15:29)
[2018-08-21] MEDS: FAMOTIDINE 20 MG/2 ML VIAL IV SCH ×2 (10:05→21:38)
[2018-08-21] MEDS ORDERED: SKIN HEALING OINT (AQUAPHOR) 50 GM TUBE TOP PRN (10:07)
[2018-08-21] MEDS ORDERED: GLUCAGON 1 MG VIAL IM PRN (10:50)
[2018-08-21] MEDS ORDERED: DEXTROSE 50% 25 GM/50 ML VIAL IV PRN (10:50)
[2018-08-21] MEDS: MEROPENEM 500 MG in SODIUM CHLORIDE 0.9% 100 ML IV SCH ×2 (13:09→23:35)
[2018-08-21] MEDS: ENOXAPARIN 40 MG/0.4 ML SYRINGE SUBCUT SCH (15:29)
[2018-08-22] MEDS: ALBUTEROL/IPRATROPIUM 3 ML NEB RESP TX SCH ×4 (00:36→20:09)
[2018-08-22] MEDS: PROPOFOL 1,000 MG/100 ML BOTTLE IV SCH ×4 (01:46→20:37)
[2018-08-22] MEDS: methylPREDNISolone SOD SUC 40 MG/1 ML VIAL IV SCH ×3 (03:42→18:21)
[2018-08-22 03:53] LABS: Basophils % 0.1 % (0.0-0.8); Hematocrit 29.4 VOL% (35.7-47.0); Hemoglobin 8.6 GM/DL (12.0-16.0); Immature Granulocytes % 0.6 %; Immature Granulocytes Absolute 0.06 #; Lymphocytes # 0.4 10*3/uL (1.4-4.0); Lymphocytes % 4.2 % (21.3-54.2); Mean Corpuscular HGB Conc 29.3 GM/DL (32-36); Mean Corpuscular Volume 89.6 FL (87-102); Mean Platelet Volume 10.3 FL (9.6-12.0); Monocytes % 10.4 % (1.7-12.7); Neutrophils % 84.7 % (38.7-73.9); Platelet Count 467 T/CUMM (130-400); Red Blood Count 3.28 MC/CUMM (3.8-5.5); Red Cell Distribution Width 21.2 % (9.3-17.3)
[2018-08-22 04:01] LABS: ABG Base Excess 13.2 MMOL/L (-2.5-2.5); ABG HCO3 36.9 MMOL/L (20-26); ABG Oxygen Saturation 94.6 % (95-100); ABG PO2 70.3 MM HG (80-95); ABG TCO2 33.3 MMOL/L (23-27); Allen Test Positive; Pt O2 Delivery Device Ventilator
[2018-08-22 04:11] LABS: Calcium 8.2 MG/DL (8.5-10.1)
[2018-08-22 04:18] LABS: Hypochromasia 1+; Lymphocytes 5 % (20-55); Microcytosis 1+; Platelet Estimate Normal; Polychromasia Few; Segmented Neutrophils 87 % (50-85); Total Cells Counted 100
[2018-08-22] MEDS: FAMOTIDINE 20 MG/2 ML VIAL IV SCH ×2 (09:54→20:00)
[2018-08-22] MEDS: FUROSEMIDE 40 MG/4 ML VIAL IV SCH ×2 (09:54→16:38)
[2018-08-22] MEDS: MEROPENEM 500 MG in SODIUM CHLORIDE 0.9% 100 ML IV SCH ×2 (12:46→23:35)
[2018-08-22] MEDS: ENOXAPARIN 40 MG/0.4 ML SYRINGE SUBCUT SCH (16:38)
[2018-08-22] MEDS: INSULIN REGULAR 100 UNIT/ML SUBCUT SCH ×2 (18:21→23:35)
[2018-08-23] MEDS: ALBUTEROL/IPRATROPIUM 3 ML NEB RESP TX SCH ×4 (00:51→19:47)
[2018-08-23 03:15] LABS: ABG Base Excess 15.4 MMOL/L (-2.5-2.5); ABG HCO3 39.3 MMOL/L (20-26); ABG Oxygen Saturation 96.1 % (95-100); ABG PCO2 47.3 MM HG (35-48); ABG PH 7.537 (7.35-7.45); ABG PO2 78.2 MM HG (80-95); ABG TCO2 36.6 MMOL/L (23-27); Allen Test Positive; Pt O2 Delivery Device Ventilator
[2018-08-23 03:46] LABS: Basophils % 0.1 % (0.0-0.8); Hematocrit 29.8 VOL% (35.7-47.0); Hemoglobin 8.9 GM/DL (12.0-16.0); Immature Granulocytes Absolute 0.11 #; Lymphocytes # 0.4 10*3/uL (1.4-4.0); Lymphocytes % 3.9 % (21.3-54.2); Mean Corpuscular HGB Conc 29.9 GM/DL (32-36); Mean Corpuscular Volume 87.9 FL (87-102); Monocytes % 11.8 % (1.7-12.7); Neutrophils % 83.2 % (38.7-73.9); Platelet Count 491 T/CUMM (130-400); Red Blood Count 3.39 MC/CUMM (3.8-5.5); Red Cell Distribution Width 21.1 % (9.3-17.3); White Blood Count 11.4 T/CUMM (4-12)
[2018-08-23] MEDS: methylPREDNISolone SOD SUC 40 MG/1 ML VIAL IV SCH ×3 (03:57→18:06)
[2018-08-23 04:03] LABS: Calcium 8.3 MG/DL (8.5-10.1); Osmolality,Calculated 305.1 MOS/KG (273-304)
[2018-08-23 04:52] LABS: Band Neutrophils 1 % (0-10); Hypochromasia 2+; Lymphocytes 6 % (20-55); Platelet Estimate Increased; Segmented Neutrophils 83 % (50-85); Total Cells Counted 100
[2018-08-23] MEDS: PROPOFOL 1,000 MG/100 ML BOTTLE IV SCH ×2 (06:02→06:44)
[2018-08-23] MEDS: INSULIN REGULAR 100 UNIT/ML SUBCUT SCH ×3 (06:02→18:06)
[2018-08-23] MEDS: FUROSEMIDE 40 MG/4 ML VIAL IV SCH ×2 (08:19→17:12)
[2018-08-23] MEDS: MEROPENEM 500 MG in SODIUM CHLORIDE 0.9% 100 ML IV SCH ×2 (11:01→23:32)
[2018-08-23] MEDS: FAMOTIDINE 20 MG/2 ML VIAL IV SCH ×2 (11:01→21:12)
[2018-08-23] MEDS: ENOXAPARIN 40 MG/0.4 ML SYRINGE SUBCUT SCH (17:12)
[2018-08-23] MEDS ORDERED: dilTIAZem Drip 125 MG/125 ML PREMIX IV SCH (18:00)
[2018-08-23] MEDS ORDERED: METOPROLOL TARTRATE 5 MG/5 ML VIAL IV ONE (18:04)
[2018-08-23] MEDS: METOPROLOL TARTRATE 50 MG TABLET PO SCH (21:11)
[2018-08-24] MEDS: INSULIN REGULAR 100 UNIT/ML SUBCUT SCH ×4 (01:03→19:35)
[2018-08-24] MEDS: ALPRAZolam 0.5 MG TABLET PO PRN ×2 (01:21→23:00)
[2018-08-24] MEDS: ALBUTEROL/IPRATROPIUM 3 ML NEB RESP TX SCH ×4 (02:43→19:00)
[2018-08-24] MEDS: methylPREDNISolone SOD SUC 40 MG/1 ML VIAL IV SCH ×3 (03:12→19:58)
[2018-08-24 03:33] LABS: ABG Base Excess 13.1 MMOL/L (-2.5-2.5); ABG HCO3 36.9 MMOL/L (20-26); ABG Oxygen Saturation 98.6 % (95-100); ABG PH 7.341 (7.35-7.45); ABG TCO2 38.5 MMOL/L (23-27); Allen Test Positive; Pt O2 Delivery Device BIPAP
[2018-08-24 05:10] LABS: Basophils % 0.1 % (0.0-0.8); Hematocrit 33.3 VOL% (35.7-47.0); Lymphocytes # 0.6 10*3/uL (1.4-4.0); Lymphocytes % 4.1 % (21.3-54.2); Mean Corpuscular Volume 90.7 FL (87-102); Mean Platelet Volume 10.2 FL (9.6-12.0); Monocytes % 12.7 % (1.7-12.7); Neutrophils % 81.1 % (38.7-73.9); Platelet Count 579 T/CUMM (130-400); Red Blood Count 3.67 MC/CUMM (3.8-5.5); Red Cell Distribution Width 21.2 % (9.3-17.3); White Blood Count 14.7 T/CUMM (4-12)
[2018-08-24 05:39] LABS: Calcium 8.7 MG/DL (8.5-10.1)
[2018-08-24 05:40] LABS: Hypochromasia 1+; Lymphocytes 8 % (20-55); Microcytosis 1+; Platelet Estimate Increased; Polychromasia Few; Segmented Neutrophils 89 % (50-85); Total Cells Counted 100
[2018-08-24] MEDS: PROPOFOL 1,000 MG/100 ML BOTTLE IV SCH (08:35)
[2018-08-24] MEDS: FAMOTIDINE 20 MG/2 ML VIAL IV SCH ×2 (08:36→20:00)
[2018-08-24] MEDS: FUROSEMIDE 40 MG/4 ML VIAL IV SCH ×2 (08:36→15:37)
[2018-08-24] MEDS: METOPROLOL TARTRATE 50 MG TABLET PO SCH ×2 (08:36→20:00)
[2018-08-24] MEDS: MEROPENEM 500 MG in SODIUM CHLORIDE 0.9% 100 ML IV SCH ×2 (11:55→23:42)
[2018-08-24] MEDS: ENOXAPARIN 40 MG/0.4 ML SYRINGE SUBCUT SCH (15:37)
[2018-08-25] MEDS: INSULIN REGULAR 100 UNIT/ML SUBCUT SCH ×3 (00:22→11:59)
[2018-08-25] MEDS: ALBUTEROL/IPRATROPIUM 3 ML NEB RESP TX SCH ×3 (00:30→14:00)
[2018-08-25] MEDS: methylPREDNISolone SOD SUC 40 MG/1 ML VIAL IV SCH ×2 (03:30→12:00)
[2018-08-25] MEDS: METOPROLOL TARTRATE 50 MG TABLET PO SCH (09:49)
[2018-08-25] MEDS: FAMOTIDINE 20 MG/2 ML VIAL IV SCH (09:50)
[2018-08-25] MEDS: FUROSEMIDE 40 MG/4 ML VIAL IV SCH ×2 (09:52→16:49)
[2018-08-25] MEDS: MEROPENEM 500 MG in SODIUM CHLORIDE 0.9% 100 ML IV SCH (10:04)
[2018-08-25 16:04] VITALS: BP 123/53
[2018-08-25] MEDS: ENOXAPARIN 40 MG/0.4 ML SYRINGE SUBCUT SCH (16:48)
[2018-08-25] MEDS ORDERED: MORPHINE 4 MG/1 ML VIAL IV PRN (16:57)
[2018-08-25] MEDS ORDERED: LORazepam 2 MG/1 ML VIAL IV PRN (16:57)
== END 2018-08-25 17:05 | disposition hospice, inpatient (51) | DRG 208 ==
LOC: EDUNIT# → N.ED 09:57 → SUATTDRO 15:13 → N.EDINP 15:13 → N.CC 16:38 → N.4E 08-24 16:52
PROVIDERS: ADMIT Family Medicine; ATTEND Internal Medicine

== ENCOUNTER 2018-08-25 16:23 | Inpatient (IN) ==
[2018-08-25] MEDS ORDERED: LORazepam 2 MG/1 ML VIAL IV PRN (17:05)
[2018-08-25] MEDS ORDERED: ONDANSETRON 4 MG/2 ML VIAL IV PRN (17:09)
[2018-08-25] MEDS ORDERED: SKIN HEALING OINT (AQUAPHOR) 50 GM TUBE TOP PRN (17:09)
[2018-08-25] MEDS ORDERED: GLUCAGON 1 MG VIAL IM PRN (17:09)
[2018-08-25] MEDS ORDERED: ALBUTEROL 2.5 MG/3 ML NEB RESP TX PRN (17:09)
[2018-08-25] MEDS ORDERED: DEXTROSE 10% 25 GM/250 ML BAG IV PRN (17:09)
[2018-08-25] MEDS: ALBUTEROL/IPRATROPIUM 3 ML NEB RESP TX SCH (19:20)
[2018-08-26] MEDS: ALBUTEROL/IPRATROPIUM 3 ML NEB RESP TX SCH ×4 (01:05→19:45)
[2018-08-26] MEDS: MORPHINE 4 MG/1 ML VIAL IV PRN ×2 (09:51→14:42)
[2018-08-26 18:36] VITALS: BP 83/33
== END 2018-08-26 20:05 | disposition expired | DRG 951 ==
LOC: N.4W 16:23
PROVIDERS: ADMIT Internal Medicine; ATTEND Internal Medicine